=== PATIENT | female | born 1945 | race Caucasian/White ===

== ENCOUNTER 2017-08-30 18:09 | Observation (INO) | payer OTHER ==
[~2017-08-30] VITALS: Ht 167.6 cm; Wt 96.2 kg
[~2017-08-30 18:09] MED LIST: ALBU1.25; ALBU18HF; ALLO100T66; AMLO10TA4; CARB100T3; CLOT21CR6; DILT180C2; GLYB5TAB3; LANS30TA6; METF500T; MINO100C42; PRAV80TA; SERT50TA; VALS1TAB22
[2017-08-30] MEDS ORDERED: IV DEXTROSE 5% - 0.9 % NACL 500 ML IV ONE (18:15)
[2017-08-30] MEDS ORDERED: IV DEXTROSE 5% - 0.9 % NACL 1,000 ML IV ONE (18:15)
[2017-08-30 18:38] LABS: BASO % 0 % (0-3); EOS # 0.1 x10^3/uL (0.0-0.7); EOS % 1 % (0-3); HEMATOCRIT 37.8 % (36.0-47.0); HEMOGLOBIN 12.9 g/dL (12.0-15.5); LYMPH # 2.3 x10^3/uL (1.0-4.8); LYMPH % 26 % (24-48); MEAN CORPUSCULAR HEMOGLOBIN 29 pg (25-35); MEAN CORPUSCULAR HGB CONC 34 g/dL (31-37); MEAN CORPUSCULAR VOLUME 84 fL (79-100); MONO # 0.4 x10^3/uL (0.0-1.1); MONO % 5 % (0-9); NEUT # 6.2 x10^3uL (1.8-7.7); NEUT % 69 % (31-73); PLATELET COUNT 219 x10^3/uL (140-400); RED BLOOD COUNT 4.51 x10^6/uL (3.50-5.40); RED CELL DISTRIBUTION WIDTH 13.5 % (11.5-14.5)
[2017-08-30 18:51] LABS: ALBUMIN 3.7 g/dL (3.4-5.0); ALBUMIN/GLOBULIN RATIO 1.1 (1.0-1.7); CALCIUM 10.1 mg/dL (8.5-10.1); CREATININE 0.8 mg/dL (0.6-1.0); GFR 70.7; POTASSIUM 4.2 mmol/L (3.5-5.1); TOTAL BILIRUBIN 0.3 mg/dL (0.2-1.0); TOTAL PROTEIN 7.2 g/dL (6.4-8.2)
--- NOTE | 2017-08-30 19:08 | PHYS DOC ---
Past History Past Medical History: Asthma, Diabetes, Heart Disease, Hypertension, Seizure Past Surgical History: Hysterectomy, Tonsillectomy, Tubal ligation Smoking: Quit Greater Than 1 Year Alcohol Use: None Drug Use: None Adult General Chief Complaint Chief Complaint: DIZZY/LIGHT HEADED HPI HPI 72-year-old female with a history of asthma and COPD, hypertension, type 2 diabetes on Glucophage and metformin, gastritis and high cholesterol. Patient now presents to the emergency department complaining of feeling lightheaded today. Patient states her glucose was low multiple times. Patient stated her glucose was in the 50s earlier today. She called EMS and when they arrived it was in the 70s. Patient refused transport at that time. This afternoon patient felt lightheaded again and called EMS. Her glucose was again in the 70s upon their arrival. She was given supplemental glucose and it went up to over 200 on arrival in the emergency department it's back down to 70. Patient states she's been compliant with her glyburide under metformin and has not taken any extra doses. The doses of these medications has not been changed recently. Chest pain or shortness of breath. No vertiginous symptoms. No nausea vomiting diarrhea. Patient states her by mouth intake has been baseline for her. No fevers chills sweats or shaking chills. Patient is very clear that she feels lightheaded with these episodes not as if the room was spinning. Review of Systems Review of Systems Constitutional: Denies fever or chills [] Eyes: Denies change in visual acuity, redness, or eye pain [] HENT: Denies nasal congestion or sore throat [] Respiratory: Denies cough or shortness of breath [] Cardiovascular: No additional information not addressed in HPI [] GI: Denies abdominal pain, nausea, vomiting, bloody stools or diarrhea [] : Denies dysuria or hematuria [] Musculoskeletal: Denies back pain or joint pain [] Integument: Denies rash or skin lesions [] Neurologic: Denies headache, focal weakness or sensory changes [] Endocrine: Denies polyuria or polydipsia [] All other systems were reviewed and found to be within normal limits, except as documented in this note. Current Medications Current Medications Current Medications Medications (Trade) Dose Ordered Sig/Kelly Start Time Stop Time Status Last Admin Dose Admin Dextrose/Sodium Chloride 1,000 ml @ 125 mls/hr 1X ONCE 08/30/17 18:15 08/31/17 02:14 Allergies Allergies Allergies Coded Allergies Type Severity Reaction Last Updated Verified Penicillins Allergy Unknown 08/19/13 Yes codeine Allergy Unknown 08/19/13 Yes ether Allergy Unknown 08/19/13 Yes Physical Exam Physical Exam Constitutional: Well developed, well nourished, no acute distress, non-toxic appearance. [] HENT: Normocephalic, atraumatic, bilateral external ears normal, oropharynx moist, no oral exudates, nose normal. [] Eyes: PERRLA, patient with baseline right exotropia, conjunctiva normal, no discharge. [] Neck: Normal range of motion, no tenderness, supple, no stridor. [] Cardiovascular:Heart rate regular rhythm, no murmur [] Lungs & Thorax: Bilateral breath sounds clear to auscultation [] Abdomen: Bowel sounds normal, soft, no tenderness, no masses, no pulsatile masses. [] Skin: Warm, dry, no erythema, no rash. [] Back: No tenderness, no CVA tenderness. [] Extremities: No tenderness, no cyanosis, no clubbing, ROM intact, no edema. [] Neurologic: Alert and oriented X 3, normal motor function, normal sensory function, no focal deficits noted. [] Psychologic: Affect normal, judgement normal, mood normal. [] Current Patient Data Vital Signs Vital Signs Date Time Temp Pulse Resp B/P (MAP) Pulse Ox O2 Delivery O2 Flow Rate FiO2 08/30/17 18:25 97.9 104 16 98 Room Air Lab Results Laboratory Tests Test 08/30/17 18:12 08/30/17 18:20 Glucose (Fingerstick) 77 mg/dL (70-99) White Blood Count 9.0 x10^3/uL (4.0-11.0) Red Blood Count 4.51 x10^6/uL (3.50-5.40) Hemoglobin 12.9 g/dL (12.0-15.5) Hematocrit 37.8 % (36.0-47.0) Mean Corpuscular Volume 84 fL (79-100) Mean Corpuscular Hemoglobin 29 pg (25-35) Mean Corpuscular Hemoglobin Concent 34 g/dL (31-37) Red Cell Distribution Width 13.5 % (11.5-14.5) Platelet Count 219 x10^3/uL (140-400) Neutrophils (%) (Auto) 69 % (31-73) Lymphocytes (%) (Auto) 26 % (24-48) Monocytes (%) (Auto) 5 % (0-9) Eosinophils (%) (Auto) 1 % (0-3) Basophils (%) (Auto) 0 % (0-3) Neutrophils # (Auto) 6.2 x10^3uL (1.8-7.7) Lymphocytes # (Auto) 2.3 x10^3/uL (1.0-4.8) Monocytes # (Auto) 0.4 x10^3/uL (0.0-1.1) Eosinophils # (Auto) 0.1 x10^3/uL (0.0-0.7) Basophils # (Auto) 0.0 x10^3/uL (0.0-0.2) Sodium Level 125 mmol/L (136-145) L Potassium Level 4.2 mmol/L (3.5-5.1) Chloride Level 86 mmol/L (98-107) L Carbon Dioxide Level 29 mmol/L (21-32) Anion Gap 10 (6-14) Blood Urea Nitrogen 18 mg/dL (7-20) Creatinine 0.8 mg/dL (0.6-1.0) Estimated GFR (Cockcroft-Gault) 70.7 BUN/Creatinine Ratio 23 (6-20) H Glucose Level 116 mg/dL (70-99) H Calcium Level 10.1 mg/dL (8.5-10.1) Total Bilirubin 0.3 mg/dL (0.2-1.0) Aspartate Amino Transferase (AST) 78 U/L (15-37) H Alanine Aminotransferase (ALT) 76 U/L (14-59) H Alkaline Phosphatase 241 U/L (46-116) H Total Protein 7.2 g/dL (6.4-8.2) Albumin 3.7 g/dL (3.4-5.0) Albumin/Globulin Ratio 1.1 (1.0-1.7) EKG EKG EKG with normal sinus rhythm at [address] and T-wave findings no STEMI interpreted by me[] Radiology/Procedures Radiology/Procedures Chest x-ray portable one view no acute disease chronic changes mild cardiomegaly , otherwise unremarkable study interpreted by me[] Course & Med Decision Making Course & Med Decision Making Pertinent Labs and Imaging studies reviewed. (See chart for details) Signs and symptoms consistent with recurrent hypoglycemia in a patient on multiple oral hypoglycemics. Despite by mouth intake, hypoglycemia continues to recur multiple times today. Full workup pending to rule out etiology contributory to patient's glycemic instability. Dr. Jc the patient's primary care physician regarding inpatient admission to supplement glucose, follow-up for stability, and adjust oral hypoglycemic therapy as needed. Case discussed with Dr. Howard, he is aware of hyponatremia and recurrent hypoglycemia agrees with current therapy excess patient for inpatient admission to a med telemetry bed to his service Dragon Disclaimer Dragon Disclaimer This electronic medical record was generated, in whole or in part, using a voice recognition dictation system. Departure Departure: Impression: Primary Impression: Hypoglycemia Additional Impressions: Near syncope Hyponatremia Disposition: ADMITTED INPATIENT Admitting Physician: Dave Howard Condition: GOOD Referrals: DAVE HOWARD MD (PCP) Problem Qualifiers ROSEANNE COPE MD Aug 30, 2017 19:08
[2017-08-30 19:09] LABS: BACTERIA,URINE 0 /HPF (0-FEW); BILIRUBIN,URINE NEG (NEG); CLARITY,URINE CLEAR; COLOR,URINE STRAW; GLUCOSE,URINE NEG (NEG); NITRITE,URINE NEG (NEG); RBC,URINE RARE /HPF (0-2); SQUAMOUS EPITHELIAL CELL,UR OCC /LPF; UROBILINOGEN,URINE 0.2 mg/dL (0.2 mg/dL)
[2017-08-30] MEDS ORDERED: ONDANSETRON PF 4 MG/2 ML VIAL. IV PRN (19:30)
[2017-08-30 20:15] VITALS: BP 154/65
[2017-08-30] MEDS ORDERED: ALBUTEROL SULFATE 2.5 MG/3 ML NEBU. NEB PRN (22:00)
[2017-08-30] MEDS ORDERED: ACETAMINOPHEN 500 MG TABLET PO PRN (22:30)
[2017-08-31 00:42] VITALS: BP 166/74
--- NOTE | 2017-08-31 05:00 | EKG ---
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
[2017-08-31 05:16] VITALS: BP 146/60
[2017-08-31 06:40] LABS: BASO % 0 % (0-3); EOS # 0.2 x10^3/uL (0.0-0.7); EOS % 2 % (0-3); HEMATOCRIT 37.6 % (36.0-47.0); HEMOGLOBIN 12.9 g/dL (12.0-15.5); LYMPH # 2.9 x10^3/uL (1.0-4.8); LYMPH % 27 % (24-48); MEAN CORPUSCULAR HEMOGLOBIN 29 pg (25-35); MEAN CORPUSCULAR HGB CONC 34 g/dL (31-37); MEAN CORPUSCULAR VOLUME 83 fL (79-100); MONO # 0.5 x10^3/uL (0.0-1.1); MONO % 5 % (0-9); NEUT # 7.1 x10^3uL (1.8-7.7); NEUT % 66 % (31-73); PLATELET COUNT 223 x10^3/uL (140-400); RED BLOOD COUNT 4.51 x10^6/uL (3.50-5.40); RED CELL DISTRIBUTION WIDTH 13.1 % (11.5-14.5); WHITE BLOOD COUNT 10.7 x10^3/uL (4.0-11.0)
[2017-08-31 06:47] LABS: CALCIUM 9.5 mg/dL (8.5-10.1); CREATININE 0.7 mg/dL (0.6-1.0); GFR 82.5; POTASSIUM 3.5 mmol/L (3.5-5.1)
--- NOTE | 2017-08-31 07:41 | RAD ---
Portable chest, 08/30/2017: History: Dizziness, lightheadedness Comparison is made to a study from 01/22/2013. The heart size is normal. There is calcific plaquing of the aorta. The pulmonary vascularity is normal. No pulmonary infiltrates are seen. There is no evidence of pleural fluid. Mild spurring is present in the spine. IMPRESSION: No acute cardiopulmonary abnormality is detected.
[2017-08-31] MEDS: amLODIPine BESYLATE 10 MG TABLET PO SCH (08:30)
[2017-08-31] MEDS: ALLOPURINOL 100 MG TABLET. PO SCH (08:30)
[2017-08-31] MEDS: LANSOPRAZOLE 30 MG TAB.RAP.DR PO SCH (08:33)
[2017-08-31] MEDS ORDERED: SERTRALINE 50 MG TABLET. PO SCH (09:00)
[2017-08-31] MEDS ORDERED: ALBUTEROL SULFATE 8GM INHALER. INH SCH (09:00)
[2017-08-31 10:18] VITALS: BP 186/61
[2017-08-31] MEDS ORDERED: traMADol 50 MG TABLET PO PRN (13:30)
[2017-08-31 15:28] VITALS: BP 135/62
--- NOTE | 2017-08-31 15:38 | HP ---
ADMIT DATE: 08/30/2017 HISTORY OF PRESENT ILLNESS: A 72-year-old female with history of asthma, COPD, has been having problems with her blood sugars, going high, going low, actually sometimes in the 50s and then back up into the 200s. The patient more importantly also had a problem with hyponatremia with a sodium of 124. As a result of all these fluctuations in her blood sugar, adjustment of her medications as well as getting her sodium back into range, the patient was admitted to the hospital. She was feeling lightheaded and not able to walk very steadily. She denied any dizziness per se. She denied chest pain or shortness of breath. PAST MEDICAL HISTORY: Asthma, diabetes, morbid obesity, hypertension, history of seizures, sleep apnea with CPAP, colonic polyps, back pain, diabetes, ____, psychiatric problems, anxiety, smoking. Tetanus diphtheria vaccination and tetanus toxoid vaccination unknown, but influenza pneumococcal up-to-date. ALLERGIES: PENICILLIN, CODEINE, ETHER, MILK, AND PEANUT OIL. HOME MEDICATIONS: Also revealed Zoloft 50 mg a day, Prevacid 30 mg, metformin 500 b.i.d., glyburide 5 mg daily, Tegretol-XR 100 mg daily, Norvasc 10, allopurinol 100, Tylenol, Ventolin 2.5, Zofran 4. REVIEW OF SYSTEMS: The patient denies any headaches, visual change, blurred vision, double vision. Does have lightheadedness. The patient otherwise denies abdominal pain. Denies any melena, hematochezia, hematemesis, and neurologically baseline for her. PHYSICAL EXAMINATION: GENERAL: Pleasant white female, morbidly obese. VITAL SIGNS: Blood pressure 175/60, respiratory rate 20, pulse 72, afebrile. HEENT: The patient's head was atraumatic, normocephalic. Eyes: PERRLA without jaundice. Mouth and throat were normal. NECK: Supple. No JVD or thyromegaly. LUNGS: Diminished throughout, poor movement of air. CARDIOVASCULAR: Regular sinus rhythm. S1, S2, without murmur, rub, thrill, or extra heart sounds. ABDOMEN: Soft, nontender, no rebound or guarding. Positive bowel sounds, no hepatosplenomegaly noted. EXTREMITIES: No clubbing, cyanosis, or edema. NEUROLOGIC: The patient is alert and oriented x 3. LABORATORY DATA: The patient's CBC normal. However, her sodium was 124, BUN and creatinine were stable at 28 and 7. Blood sugars as noted vacillated anywhere from 70 to 286. Cardiac enzymes negative, proteins normal. 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 PLAN: Continue to monitor the patient, accordingly make further evaluation on her as indicated per those results. CIRO VIDAL MD DR: KHADRA/feroz JOB#: [id number] / [id number]
[2017-08-31 19:34] VITALS: BP 180/95
[2017-08-31 23:12] VITALS: BP 155/81
[2017-09-01 06:04] VITALS: BP 153/62
[2017-09-01 06:33] LABS: CALCIUM 9.7 mg/dL (8.5-10.1); CREATININE 0.8 mg/dL (0.6-1.0); GFR 70.7; POTASSIUM 3.8 mmol/L (3.5-5.1)
[2017-09-01] MEDS: ALLOPURINOL 100 MG TABLET. PO SCH (08:07)
[2017-09-01] MEDS: amLODIPine BESYLATE 10 MG TABLET PO SCH (08:07)
[2017-09-01] MEDS: LANSOPRAZOLE 30 MG TAB.RAP.DR PO SCH (08:08)
[2017-09-01 08:10] VITALS: BP 153/62
[2017-09-01] MEDS ORDERED: [UNRECOGNIZED DRUG - OTHER] PO SCH (09:00)
[2017-09-01] MEDS ORDERED: METAMUCIL PO SCH (09:00)
[2017-09-01] MEDS ORDERED: POLYETHYLENE GLYCOL PO SCH (09:00)
[2017-09-01] MEDS ORDERED: PSYLLIUM SEED PO SCH (09:00)
== END 2017-09-01 10:25 | disposition home or self-care (01) ==
LOC: ER 18:09 → 1 SOUTH 19:30 → INTOOBSV 19:30
PROVIDERS: ADMIT Family Medicine; ATTEND Family Medicine
DX: E87.1 Hypo-osmolality and hyponatremia (principal); E11.9 Type 2 diabetes mellitus without complications; J44.9 Chronic obstructive pulmonary disease, unspecified; G47.30 Sleep apnea, unspecified; I10 Essential (primary) hypertension; E66.01 Morbid (severe) obesity due to excess calories; Z86.010 Personal history of colon polyps
CPT/HCPCS: 36415; 71045; 80048; 80053; 81001; 82947; 84443; 84484; 85025; 93005; 96360; 96361; 97161; 97166; 99285; G0378; J7042; G0379

== ENCOUNTER 2018-01-31 17:34 | Emergency (ER) | payer OTHER ==
[~2018-01-31] VITALS: Ht 167.6 cm; Wt 93.4 kg
--- NOTE | 2018-01-31 17:41 | ED.ADGEN ---
Past History Past Medical History: Asthma, Diabetes, Heart Disease, Hypertension, Seizure Past Surgical History: Hysterectomy, Tonsillectomy, Tubal ligation Smoking: Quit Greater Than 1 Year Alcohol Use: None Drug Use: None Adult General Chief Complaint Chief Complaint ".. I bent over this morning.. and felt something pull in my back.. and chest... here on the Lt..... It still hurts if you push on it... " HPI HPI Patient is a 72 year old female who presents with above hx and complaints Point tenderness on Lt guthrie phenic or flank. Pt. is increased with bending side to side and forward. Patient denies any history of problems with defecation or urination. Pain appears to be localized and very small area 1-2 cm. Pain is reducible on palpation. Patient denies any trauma. Patient denies any travel. Patient denies immunosuppression. Patient follows Dr. Howard. Patient denies any history kidney stones or dysuria. Review of Systems Review of Systems Constitutional: Denies fever or chills [] Eyes: Denies change in visual acuity, redness, or eye pain [] HENT: Denies nasal congestion or sore throat [] Respiratory: Denies cough or shortness of breath [] Cardiovascular: No additional information not addressed in HPI [] GI: Denies abdominal pain, nausea, vomiting, bloody stools or diarrhea [] : Denies dysuria or hematuria [] Musculoskeletal: Complains of back pain Integument: Denies rash or skin lesions [] Neurologic: Denies headache, focal weakness or sensory changes [] Endocrine: Denies polyuria or polydipsia [] All other systems were reviewed and found to be within normal limits, except as documented in this note. Family History Family History Noncontributory Current Medications Current Medications Current Medications Medications (Trade) Dose Ordered Sig/Kelly Start Time Stop Time Status Last Admin Dose Admin Ketorolac Tromethamine (Toradol 30mg Vial) 30 mg 1X ONCE 01/31/18 18:00 01/31/18 18:01 DC 01/31/18 18:35 30 MG Levofloxacin (Levaquin) 500 mg 1X ONCE 01/31/18 18:45 01/31/18 18:47 DC 01/31/18 19:16 500 MG Orphenadrine Citrate (Norflex) 60 mg 1X ONCE 01/31/18 18:00 01/31/18 18:01 DC Allergies Allergies Allergies Coded Allergies Type Severity Reaction Last Updated Verified Penicillins Allergy Intermediate 08/30/17 Yes codeine Allergy Intermediate 08/30/17 Yes ether Allergy Intermediate 08/30/17 Yes milk Allergy Intermediate 08/30/17 Yes peanut oil Allergy Intermediate 08/30/17 Yes Physical Exam Physical Exam Constitutional: Moderately acute distress, non-toxic appearance. [] HENT: Normocephalic, atraumatic, bilateral external ears normal, oropharynx moist, no oral exudates, nose normal. [] Eyes: PERRLA, EOMI, conjunctiva normal, no discharge. [] Neck: Normal range of motion, no tenderness, supple, no stridor. [] Cardiovascular:Heart rate regular rhythm, no murmur [] Lungs & Thorax: Bilateral breath sounds clear to auscultation [] Abdomen: Bowel sounds normal, soft, no tenderness, no masses, no pulsatile masses. [] Obese. Multiple surgery scars. Skin: Warm, dry, no erythema, no rash. [] Back: Left point tenderness, left CVA tenderness. [] Extremities: No tenderness, no cyanosis, no clubbing, ROM intact, no edema. [ Neurologic: Alert and oriented X 3, normal motor function, normal sensory function, no focal deficits noted. []DTRs +2 patella and brachial. Patient ambulatory without problems. Psychologic: Affect normal, judgement normal, mood normal. [] Current Patient Data Vital Signs Vital Signs Date Time Temp Pulse Resp B/P (MAP) Pulse Ox O2 Delivery O2 Flow Rate FiO2 01/31/18 19:20 78 16 156/84 (108) 98 Room Air 01/31/18 17:45 97.5 Lab Results Laboratory Tests Test 01/31/18 18:03 Urine Collection Type Unknown Urine Color Straw Urine Clarity Hazy Urine pH 6.5 Urine Specific [place] 1.015 Urine Protein Neg (NEG-TRACE) Urine Glucose (UA) Neg mg/dL (NEG) Urine Ketones (Stick) Neg mg/dL (NEG) Urine Blood Trace (NEG) Urine Nitrite Neg (NEG) Urine Bilirubin Neg (NEG) Urine Urobilinogen Dipstick 0.2 mg/dL (0.2 mg/dL) Urine Leukocyte Esterase Mod (NEG) Urine RBC 3-5 /HPF (0-2) Urine WBC 11-20 /HPF (0-4) Urine Squamous Epithelial Cells Few /LPF Urine Bacteria Few /HPF (0-FEW) EKG EKG [] Radiology/Procedures Radiology/Procedures [] Course & Med Decision Making Course & Med Decision Making Pertinent Labs and Imaging studies reviewed. (See chart for details).. She push fluids. Patient to take Levaquin daily for 5 days. Patient follow up urine cultures. Patient take Tylenol and ibuprofen for pain. Patient consider taking Flexeril however reports a previous allergy muscle relaxants. Patient use ice packs. Patient to push vitamin C drinks. Patient return if any concerns. [] Final Impression Final Impression 1. Muscle Strain[] 2. Urinary tract infection Dragon Disclaimer Dragon Disclaimer This electronic medical record was generated, in whole or in part, using a voice recognition dictation system. LILIAN CHANEY MD Jan 31, 2018 17:41
[2018-01-31] MEDS ORDERED: KETOROLAC 30 MG/ML VIAL. IM ONE (18:00)
[2018-01-31] MEDS ORDERED: CYCL-331 PO (18:00)
[2018-01-31] MEDS ORDERED: HYDR-79 PO (18:00)
[2018-01-31] MEDS ORDERED: ORPHENADRINE CITRATE 60 MG/2 ML VIAL. IM ONE (18:00)
[2018-01-31 18:30] LABS: BILIRUBIN,URINE NEG (NEG); CLARITY,URINE HAZY; COLOR,URINE STRAW; GLUCOSE,URINE NEG (NEG); NITRITE,URINE NEG (NEG); UROBILINOGEN,URINE 0.2 mg/dL (0.2 mg/dL)
[2018-01-31 18:31] LABS: BACTERIA,URINE FEW /HPF (0-FEW); SQUAMOUS EPITHELIAL CELL,UR FEW /LPF
[2018-01-31] MEDS ORDERED: LEVO500T59 PO (18:45)
[2018-01-31] MEDS ORDERED: levoFLOXacin 500 MG TABLET PO ONE (18:45)
[2018-01-31 19:20] VITALS: BP 156/84
--- NOTE | 2018-02-01 02:34 | RAD ---
Chest, PA and Lateral: Technique: PA and lateral views of the chest were obtained. History: Chest pain. Comparison: None. Findings: The heart and pulmonary vasculature appear within normal limits. The lungs are clear. The pleural margins are clear. Moderate degenerative changes thoracic spine. Impression: No acute chest process is seen. Electronically signed by: Angel Jones MD (02/01/2018 2:31 AM) [id number]
== END 2018-01-31 19:20 | disposition home or self-care (01) ==
LOC: ER 17:34
DX: S29.012A Strain of muscle and tendon of back wall of thorax, initial encounter (principal); N39.0 Urinary tract infection, site not specified; J45.909 Unspecified asthma, uncomplicated; E11.9 Type 2 diabetes mellitus without complications; I11.9 Hypertensive heart disease without heart failure; Z87.891 Personal history of nicotine dependence; Z88.0 Allergy status to penicillin; Z88.5 Allergy status to narcotic agent; Z91.011 Allergy to milk products; Z88.8 Allergy status to other drugs, medicaments and biological substances; Z91.018 Allergy to other foods; X50.0XXA Overexertion from strenuous movement or load, initial encounter; Y93.89 Activity, other specified; Y92.89 Other specified places as the place of occurrence of the external cause; Y99.8 Other external cause status
CPT/HCPCS: 71046; 81001; 87086; 96372; 99285; J1885

== ENCOUNTER → 2018-12-21 | Outpatient (CLI) | payer OTHER ==
[~2018-12-21] MED LIST changes: -ALBU18HF; +ALBU2.5V8; +CYCL-331 PO; +HYDR-1179 PO; +LEVO500T59 PO
--- NOTE | 2018-12-21 12:49 | RAD ---
EXAM: Head CT without contrast. HISTORY: Suspected foreign body. TECHNIQUE: Computed tomographic images of the head were obtained without contrast. *One or more of the following individualized dose reduction techniques were utilized for this examination: 1. Automated exposure control. 2. Adjustment of the mA and/or kV according to patient size. 3. Use of iterative reconstruction technique. COMPARISON: None. FINDINGS: There is no acute or subacute extra-axial or intraparenchymal hemorrhage. There is no mass effect or midline shift. There is no hydrocephalus. The [id number] matter differentiation pattern is intact. The orbits, paranasal sinuses mastoid air cells are unremarkable. There are few tiny calcifications within the soft tissues along the inferior scalp and nasal bridge. There is also a suspected tiny calcification within the right frontal scalp near the vertex. No suspicious retained foreign body is seen. IMPRESSION: No acute intracranial findings. Electronically signed by: Kiara Salazar MD (12/21/2018 12:46 PM) [id number]
== END | disposition home or self-care (01) ==
LOC: CT 10:26
PROVIDERS: ATTEND Family Medicine
DX: J34.89 Other specified disorders of nose and nasal sinuses (principal)
CPT/HCPCS: 70450

== ENCOUNTER → 2019-09-27 | Outpatient (CLI) | payer MEDICARE ==
[2019-09-27 11:34] LABS: ALBUMIN 3.6 g/dL (3.4-5.0); ALBUMIN/GLOBULIN RATIO 0.9 (1.0-1.7); CALCIUM 9.7 mg/dL (8.5-10.1); CREATININE 1.7 mg/dL (0.6-1.0); GFR 29.5; POTASSIUM 4.3 mmol/L (3.5-5.1); TOTAL BILIRUBIN 0.2 mg/dL (0.2-1.0); TOTAL PROTEIN 7.5 g/dL (6.4-8.2)
== END | disposition home or self-care (01) ==
LOC: LAB 09:40
PROVIDERS: ATTEND Nurse Practitioner
DX: E78.5 Hyperlipidemia, unspecified (principal)
CPT/HCPCS: 36415; 80053; 80061

== ENCOUNTER 2020-09-07 16:17 | Inpatient (IN) | payer MEDICARE ==
[~2020-09-07] VITALS: Ht 167.6 cm; Wt 106.0 kg
[~2020-09-07 16:17] MED LIST changes: -VALS1TAB22; +VALS1TAB23
--- NOTE | 2020-09-07 19:13 | RAD ---
AP chest. HISTORY: Short of breath AP view was taken of the chest. Lungs are clear. Heart is normal in size. There is no pleural effusio n. IMPRESSION: 1. No acute chest disease. Electronically signed by: Jeffery Graham MD (09/07/2020 7:11 PM) [facility]
[2020-09-07 19:27] LABS: BASO % 1 % (0-3); EOS % 0 % (0-3); HEMATOCRIT 34.8 % (36.0-47.0); HEMOGLOBIN 11.8 g/dL (12.0-15.5); LYMPH # 1.5 x10^3/uL (1.0-4.8); LYMPH % 23 % (24-48); MEAN CORPUSCULAR HEMOGLOBIN 30 pg (25-35); MEAN CORPUSCULAR HGB CONC 34 g/dL (31-37); MEAN CORPUSCULAR VOLUME 88 fL (79-100); MONO # 0.4 x10^3/uL (0.0-1.1); MONO % 6 % (0-9); NEUT # 4.5 x10^3uL (1.8-7.7); NEUT % 70 % (31-73); PLATELET COUNT 219 x10^3/uL (140-400); RED BLOOD COUNT 3.97 x10^6/uL (3.50-5.40); WHITE BLOOD COUNT 6.4 x10^3/uL (4.0-11.0)
[2020-09-07 19:32] LABS: CALCIUM 10.1 mg/dL (8.5-10.1); CREATININE 1.1 mg/dL (0.6-1.0); GFR 48.6; POTASSIUM 4.4 mmol/L (3.5-5.1)
--- NOTE | 2020-09-07 19:38 | PHYS DOC ---
Past History Past Medical History: Asthma, Diabetes, High Cholesterol, Heart Disease, Hypertension, Seizure, Other Past Surgical History: Hysterectomy, Tonsillectomy, Tubal ligation, Other Smoking: Quit Greater Than 1 Year Alcohol Use: None Drug Use: None Adult General Chief Complaint Chief Complaint: SHORTNESS OF BREATH HPI HPI Patient is a 75-year-old female who presents emergency department with a chief complaint of lightheadedness and urinary tract infection. States that about a week ago she saw her primary care physician and was diagnosed with a urinary t ract infection and started on Bactrim. States that soon as she started taking the Bactrim it made her feel funny, and lightheaded at times. States that currently she is not lightheaded but thinks the medication is having adverse effects. States she is taken approximately 6 days worth, and did take it this morning. States that about 30 minutes after taking it she felt lightheaded. Denies headache, changes in vision, chest pain, shortness of breath, abdominal pain, nausea, vomiting, diarrhea. States that she did have some dysuria and urine odor when she started the Bactrim but that has resolved. Denies any recent travel, illnesses, fevers or known ill contacts. States she is otherwise eating and drinking normally. States he is making urine and stool normally. Denies any trouble ambulating. Denies any numbness/weakness/tingling. Denies any slurred speech, facial droop or confusion. Review of Systems Review of Systems Review of systems otherwise unremarkable except noted in HPI Allergies Allergies Allergies Coded Allergies Type Severity Reaction Last Updated Verified Penicillins Allergy Intermediate 08/30/17 Yes codeine Allergy Intermediate 08/30/17 Yes ether Allergy Intermediate 08/30/17 Yes milk Allergy Intermediate 08/30/17 Yes peanut oil Allergy Intermediate 08/30/17 Yes Physical Exam Physical Exam Constitutional: Well developed, well nourished, no acute distress, non-toxic appearance. [] HENT: Normocephalic, atraumatic, bilateral external ears normal, oropharynx moist, no oral exudates, nose normal. [] Eyes: PERRLA, EOMI, conjunctiva normal, no discharge. Patient has a right-sided lazy eye at baseline. [] Neck: Normal range of motion, no tenderness, supple, no stridor. [] Cardiovascular:Heart rate regular rhythm, no murmur [] Lungs & Thorax: Bilateral breath sounds clear to auscultation [] Abdomen: soft, no tenderness, no masses, no pulsatile masses. [] Skin: Warm, dry, no erythema, no rash. [] Back: no CVA tenderness. [] Extremities: No tenderness, no cyanosis, no clubbing, ROM intact, no edema. [] Neurologic: Alert and oriented X 3, normal motor function, normal sensory function, no focal deficits noted. [] Psychologic: Affect normal, judgement normal, mood normal. [] Current Patient Data Lab Results Laboratory Tests Test 09/07/20 16:39 09/07/20 18:56 Glucose (Fingerstick) 153 mg/dL (70-99) H White Blood Count 6.4 x10^3/uL (4.0-11.0) Red Blood Count 3.97 x10^6/uL (3.50-5.40) Hemoglobin 11.8 g/dL (12.0-15.5) L Hematocrit 34.8 % (36.0-47.0) L Mean Corpuscular Volume 88 fL (79-100) Mean Corpuscular Hemoglobin 30 pg (25-35) Mean Corpuscular Hemoglobin Concent 34 g/dL (31-37) Red Cell Distribution Width 14.0 % (11.5-14.5) Platelet Count 219 x10^3/uL (140-400) Neutrophils (%) (Auto) 70 % (31-73) Lymphocytes (%) (Auto) 23 % (24-48) L Monocytes (%) (Auto) 6 % (0-9) Eosinophils (%) (Auto) 0 % (0-3) Basophils (%) (Auto) 1 % (0-3) Neutrophils # (Auto) 4.5 x10^3uL (1.8-7.7) Lymphocytes # (Auto) 1.5 x10^3/uL (1.0-4.8) Monocytes # (Auto) 0.4 x10^3/uL (0.0-1.1) Eosinophils # (Auto) 0.0 x10^3/uL (0.0-0.7) Basophils # (Auto) 0.0 x10^3/uL (0.0-0.2) EKG EKG [] Radiology/Procedures Radiology/Procedures [] Heart Score C/O Chest Pain: No Risk Factors: Risk Factors: DM, Current or recent (<one month) smoker, HTN, HLP, family history of CAD, obesity. Risk Scores: Risk Factors: DM, Current or recent (<one month) smoker, HTN, HLP, family history of CAD, obesity. Course & Med Decision Making Course & Med Decision Making Patient is a 75-year-old female who presents with a chief complaint of concern for adverse medication reaction and lightheadedness Vital signs not concerning. Physical exam noted above. EKG noted above and no concern for STEMI. Does appear to have a first-degree block. Laboratory analysis notable for hyponatremia to one twenty-two. Patient appears to have an approximately 700 mEq sodium deficit. Started on one hundred mils an hour normal saline. Discussed all findings with patient and recommended admission to the hospital for continued evaluation and treatment of her hyponatremia. Patient grateful, verbalized understanding and agreed with plan of admission [] Dragon Disclaimer Dragon Disclaimer This electronic medical record was generated, in whole or in part, using a voice recognition dictation system. Departure Departure: Impression: Primary Impression: Hyponatremia Additional Impression: Lightheaded Disposition: ADMITTED INPATIENT Admitting Physician: Rajni Hansen Condition: IMPROVED Referrals: CIRO VIDAL MD (PCP) Problem Qualifiers CLARK RAMIRES MD Sep 07, 2020 19:37
[2020-09-07 19:40] LABS: ALBUMIN 3.9 g/dL (3.4-5.0); ALBUMIN/GLOBULIN RATIO 1.3 (1.0-1.7); MAGNESIUM 1.9 mg/dL (1.8-2.4); TOTAL BILIRUBIN 0.3 mg/dL (0.2-1.0)
--- NOTE | 2020-09-07 19:57 | EKG ---
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
[2020-09-07 20:04] LABS: BILIRUBIN,URINE NEG (NEG); CLARITY,URINE CLEAR; COLOR,URINE YELLOW; GLUCOSE,URINE NEG (NEG); NITRITE,URINE NEG (NEG); UROBILINOGEN,URINE 0.2 mg/dL (0.2 mg/dL)
[2020-09-07 20:05] LABS: BACTERIA,URINE 0 /HPF (0-FEW); SQUAMOUS EPITHELIAL CELL,UR MOD /LPF
[2020-09-07] MEDS ORDERED: IV NORMAL SALINE 1,000ML 1,000 ML IV ONE (21:00)
[2020-09-07] MEDS ORDERED: ACETAMINOPHEN 500 MG TABLET PO ONE (21:15)
[2020-09-07 22:05] VITALS: BP 191/69
[2020-09-07 23:26] VITALS: BP 197/65
--- NOTE | 2020-09-08 | NUR ---
The patient, JUAN ALFARO, 75 y/o, F admitted by CIRO VIDAL MD, to room 124, was given written information regarding hospital policies, unit procedures and contact persons. Valuables were checked and left with the patient. Prescriptions were recorded and sent to the pharmacy. Pt made comfortable in bed, oriented to room and procedures. Will continue to monitor.
[2020-09-08] MEDS: traMADol 50 MG TABLET PO PRN ×3 (00:09→08:53)
[2020-09-08] MEDS ORDERED: CARB200C7 PO (04:35)
[2020-09-08] MEDS ORDERED: GLYB2.5T2 PO (04:35)
[2020-09-08] MEDS ORDERED: CHLO25TA9 PO (04:35)
[2020-09-08] MEDS ORDERED: DILT360T7 PO (04:35)
[2020-09-08] MEDS ORDERED: CRESTOR40 MG PO (04:35)
[2020-09-08] MEDS ORDERED: ALLO100T PO (04:35)
[2020-09-08] MEDS ORDERED: OLME40TA12 PO (04:35)
[2020-09-08] MEDS ORDERED: ASPI-889 PO (04:35)
[2020-09-08 06:26] VITALS: BP 152/41
[2020-09-08 07:59] LABS: CALCIUM 9.3 mg/dL (8.5-10.1); GFR 54.2; POTASSIUM 4.4 mmol/L (3.5-5.1)
[2020-09-08] MEDS: CHLORTHALIDONE 25 MG TABLET PO SCH (09:00)
[2020-09-08] MEDS: ASPIRIN ENTERIC COATED 81 MG TABLET.DR. PO SCH ×2 (09:00→09:30)
[2020-09-08] MEDS ORDERED: levoFLOXacin 500 MG TABLET PO SCH (09:00)
[2020-09-08] MEDS: carBAMazepine 200 MG TABLET PO SCH ×5 (09:15→20:48)
[2020-09-08] MEDS: ATORVASTATIN CALCIUM 20 MG TABLET PO SCH (09:30)
[2020-09-08] MEDS: HYDROcodon/IBUPROFEN 7.5/200MG 1 TAB TABLET PO PRN ×2 (09:30→20:49)
[2020-09-08] MEDS: ALLOPURINOL 100 MG TABLET. PO SCH ×2 (09:31→20:48)
[2020-09-08] MEDS: LOSARTAN 50 MG TABLET. PO SCH (09:31)
[2020-09-08] MEDS: glyBURIDE 5 MG TABLET PO SCH ×2 (09:31→17:00)
[2020-09-08 10:24] VITALS: BP 145/65
[2020-09-08] MEDS: IV NORMAL SALINE 1,000ML 500 ML IV SCH (11:30)
[2020-09-08 15:48] VITALS: BP 144/51
[2020-09-08 19:02] VITALS: BP 147/73
[2020-09-08] MEDS: POLYETHYLENE GLYCOL 3350 17 GM PACKET. PO SCH (20:48)
[2020-09-08 23:00] VITALS: BP_SYST 102; BP_SYST 162; BP_DIAS 70; BP_DIAS 84
[2020-09-09] MEDS: IV NORMAL SALINE 1,000ML 500 ML IV SCH ×5 (00:50→19:40)
[2020-09-09] MEDS: traMADol 50 MG TABLET PO PRN (03:30)
[2020-09-09 05:48] LABS: BACTERIA,URINE FEW /HPF (0-FEW); BILIRUBIN,URINE NEG (NEG); CLARITY,URINE HAZY; COLOR,URINE YELLOW; GLUCOSE,URINE NEG (NEG); NITRITE,URINE NEG (NEG); RBC,URINE 0 /HPF (0-2); SQUAMOUS EPITHELIAL CELL,UR FEW /LPF; UROBILINOGEN,URINE 0.2 mg/dL (0.2 mg/dL)
[2020-09-09 06:22] VITALS: BP 155/54
[2020-09-09] MEDS: ATORVASTATIN CALCIUM 20 MG TABLET PO SCH (07:19)
[2020-09-09] MEDS: CHLORTHALIDONE 25 MG TABLET PO SCH (07:19)
[2020-09-09] MEDS: LOSARTAN 50 MG TABLET. PO SCH (07:19)
[2020-09-09] MEDS: LORazepam 1 MG TABLET PO PRN ×2 (07:19→20:16)
[2020-09-09] MEDS: ASPIRIN ENTERIC COATED 81 MG TABLET.DR. PO SCH (07:20)
[2020-09-09] MEDS: HYDROcodon/IBUPROFEN 7.5/200MG 1 TAB TABLET PO PRN ×2 (07:20→20:16)
[2020-09-09] MEDS: carBAMazepine 200 MG TABLET PO SCH ×4 (07:20→20:16)
[2020-09-09] MEDS: glyBURIDE 5 MG TABLET PO SCH ×2 (07:20→17:56)
[2020-09-09] MEDS: POLYETHYLENE GLYCOL 3350 17 GM PACKET. PO SCH ×2 (07:20→20:16)
[2020-09-09] MEDS: ALLOPURINOL 100 MG TABLET. PO SCH ×2 (07:20→20:16)
[2020-09-09 10:09] LABS: BASO % 1 % (0-3); EOS % 1 % (0-3); HEMATOCRIT 33.5 % (36.0-47.0); HEMOGLOBIN 11.2 g/dL (12.0-15.5); LYMPH # 1.4 x10^3/uL (1.0-4.8); LYMPH % 26 % (24-48); MEAN CORPUSCULAR HEMOGLOBIN 30 pg (25-35); MEAN CORPUSCULAR HGB CONC 34 g/dL (31-37); MEAN CORPUSCULAR VOLUME 89 fL (79-100); MONO # 0.4 x10^3/uL (0.0-1.1); MONO % 8 % (0-9); NEUT # 3.4 x10^3uL (1.8-7.7); NEUT % 65 % (31-73); PLATELET COUNT 213 x10^3/uL (140-400); RED BLOOD COUNT 3.78 x10^6/uL (3.50-5.40); RED CELL DISTRIBUTION WIDTH 14.1 % (11.5-14.5); WHITE BLOOD COUNT 5.3 x10^3/uL (4.0-11.0)
[2020-09-09 10:11] LABS: CALCIUM 9.3 mg/dL (8.5-10.1); CREATININE 0.8 mg/dL (0.6-1.0); GFR 70.1; POTASSIUM 4.4 mmol/L (3.5-5.1)
[2020-09-09 11:29] VITALS: BP 152/82
[2020-09-09 16:04] VITALS: BP 156/69
[2020-09-09 19:22] VITALS: BP 141/71
[2020-09-09 23:12] VITALS: BP 119/67
--- NOTE | 2020-09-10 01:17 | PN ---
DATE: 09/08/2020 SUBJECTIVE: A 75-year-old female in with hyponatremia. She is doing fairly well except for sodium was dropped down to 123. Feels very weak, anxious and not feeling very well. In any case, the patient will be given a bag of normal saline and see if that will bring up her sodium. OBJECTIVE: VITAL SIGNS: Blood pressure 120/70, respiratory rate 18, pulse 70, afebrile. LUNGS: Clear. CARDIOVASCULAR: Stable. ABDOMEN: Soft. LABORATORY DATA: The patient's sodium is noted down to 123. IMPRESSION: Hyponatremia. PLAN: Continue to monitor her accordingly and make further evaluation on her as indicated. CIRO VIDAL MD DR: KHADRA/feroz JOB#: [id number] / [id number]
[2020-09-10] MEDS: IV NORMAL SALINE 1,000ML 500 ML IV SCH ×2 (02:20→09:00)
[2020-09-10 05:29] VITALS: BP 148/75
[2020-09-10 06:52] LABS: CALCIUM 9.3 mg/dL (8.5-10.1); CREATININE 0.9 mg/dL (0.6-1.0); GFR 61.2; POTASSIUM 4.6 mmol/L (3.5-5.1)
[2020-09-10] MEDS: CHLORTHALIDONE 25 MG TABLET PO SCH (09:00)
[2020-09-10] MEDS: ASPIRIN ENTERIC COATED 81 MG TABLET.DR. PO SCH (09:35)
[2020-09-10] MEDS: ALLOPURINOL 100 MG TABLET. PO SCH (09:35)
[2020-09-10] MEDS: carBAMazepine 200 MG TABLET PO SCH (09:35)
[2020-09-10] MEDS: ATORVASTATIN CALCIUM 20 MG TABLET PO SCH (09:36)
[2020-09-10] MEDS: glyBURIDE 5 MG TABLET PO SCH (09:36)
[2020-09-10 09:37] VITALS: BP 148/75
[2020-09-10] MEDS: POLYETHYLENE GLYCOL 3350 17 GM PACKET. PO SCH (09:37)
[2020-09-10] MEDS: LOSARTAN 50 MG TABLET. PO SCH (09:37)
--- NOTE | 2020-09-10 11:07 | NUR ---
DISCHARGE NOTE Pt discharged today by Dr. Howard. Pt picked up by daughter. Pt verbalized understanding of discharge instructions and all questions addressed. All belongings given to daughter and medications given back to pt from pharmacy. VSS and GCS 15 upon DC. CC, RN
--- NOTE | 2020-09-10 18:14 | HP ---
ADMIT DATE: 09/07/2020 HISTORY OF PRESENT ILLNESS: A 75-year-old female came in through the Emergency Room about a week ago, was started on Bactrim for a urinary tract infection. She began to feel lightheaded and may have been side effect of the medication. However, the patient also noted that she was very weak overall and when evaluated in the Emergency Room her sodium was down to 123. The patient felt lightheaded and unsafe walking and as a result of this, the patient was admitted to the hospital for further evaluation. The patient is up-to-date on her COVID shots. The patient in turn was admitted because of the severe hyponatremia and further evaluation of such, may be related to the antibiotic, it may be related obviously to other sources that could cause the low sodium. 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 ALLERGIES: CODEINE, ETHER, PENICILLIN, BENADRYL, PREDNISOLONE and LORAZEPAM. MEDICATIONS: Albuterol, DuoNeb, diabetic shoes, allopurinol 100 mg, chlorthalidone 25 half tablet, Benicar 40, rosuvastatin 20, vitamin D, diltiazem 360, carbamazepine 200 mg 4 times a day, tramadol 50, ____ lancets. FAMILY HISTORY: Father of tuberculosis. Mother with coronary artery disease. SOCIAL HISTORY: The patient denies smoking, alcohol or drug use. She is a full code. REVIEW OF SYSTEMS: The patient denies headaches, visual changes, chest pain, shortness of breath, abdominal pain, has some nausea, but no vomiting. Bowels are normal. Outside of her numbness and weakness and tingling denies any slurred speech or facial droop. PHYSICAL EXAMINATION: GENERAL: Pleasant white female, moderately obese. VITAL SIGNS: Blood pressure 138/80, respiratory rate 20, pulse 72, afebrile. HEENT: The patient's head was atraumatic, normocephalic. Eyes: PERRL except for the right eye of course, which has a glass eye. Mouth and throat were normal. NECK: Supple, without JVD, carotid bruits or thyromegaly. LUNGS: Diminished throughout, poor movement of air. CARDIOVASCULAR: Regular sinus rhythm, S1, S2, without murmur, rub, thrill, or extra heart sounds. ABDOMEN: Soft, nontender, no rebound or guarding. Positive bowel sounds, no hepatosplenomegaly noted. EXTREMITIES: No clubbing, cyanosis, nor edema. NEUROLOGIC: The patient was alert and oriented x 3. Sodium was 123. Creatinine was normal. Blood sugars were up and down. Cardiac enzymes negative. The patient will be admitted for further evaluation of hyponatremia, hypotension, lightheadedness and make further evaluation on her as indicated. CIRO VIDAL MD DR: KHADRA/feroz JOB#: [id number] / [id number]
== END 2020-09-10 11:00 | disposition home or self-care (01) | DRG 641 ==
LOC: ER 16:17 → 1 SOUTH 20:46
PROVIDERS: ADMIT Family Medicine; ATTEND Family Medicine
DX: E87.1 Hypo-osmolality and hyponatremia (principal); N39.0 Urinary tract infection, site not specified; J45.909 Unspecified asthma, uncomplicated; E78.00 Pure hypercholesterolemia, unspecified; E11.9 Type 2 diabetes mellitus without complications; I10 Essential (primary) hypertension; M10.9 Gout, unspecified; T36.8X5A Adverse effect of other systemic antibiotics, initial encounter; G40.409 Other generalized epilepsy and epileptic syndromes, not intractable, without status epilepticus; M85.80 Other specified disorders of bone density and structure, unspecified site; Z87.891 Personal history of nicotine dependence; Z98.51 Tubal ligation status; Z82.49 Family history of ischemic heart disease and other diseases of the circulatory system; Z90.710 Acquired absence of both cervix and uterus; Z88.0 Allergy status to penicillin; Z91.011 Allergy to milk products; Z88.5 Allergy status to narcotic agent; Z91.010 Allergy to peanuts; Y92.89 Other specified places as the place of occurrence of the external cause
CPT/HCPCS: 36415; 71045; 80048; 80053; 81001; 82533; 82947; 83735; 83935; 84300; 84443; 84484; 85025; 85379; 87086; 93005; 96360; 99285-25; J7030

== ENCOUNTER 2020-09-18 17:54 | Emergency (ER) | payer MEDICARE ==
[~2020-09-18] VITALS: Ht 167.6 cm; Wt 106.0 kg
[~2020-09-18 17:54] MED LIST changes: +ALLO100T PO; +ASPI-889 PO; +CARB200C7 PO; +CHLO25TA9 PO; +CRESTOR40 MG PO; +DILT360T7 PO; +GLYB2.5T2 PO; +OLME40TA12 PO
--- NOTE | 2020-09-18 18:39 | PHYS DOC ---
Past History Past Medical History: Anxiety, Asthma, Diabetes, High Cholesterol, Heart Disease, Hypertension, Seizure, Other Past Surgical History: Hysterectomy, Tonsillectomy, Tubal ligation, Other Smoking: Quit Greater Than 1 Year Alcohol Use: None Drug Use: None Adult General Chief Complaint Chief Complaint: DIZZY/LIGHT HEADED HPI HPI Patient is a 75-year-old female with a past medical history of anxiety, depression, diabetes and hypertension who presents to the emergency department with an episode of lightheadedness. States he has been doing well but this m orning she got up from sitting down and felt lightheaded and had to sit back down. Denies any syncope, diaphoresis, headache, changes in vision, chest pain, shortness of breath, abdominal pain, nausea, vomiting, urinary symptoms, diarrhea, or blood in the stool.. Denies any recent Covid/flu/cold symptoms. Denies any recent travel, illnesses or ill contacts. States that here in the emergency department she feels okay but was wondering why she felt lightheaded this morning. Review of Systems Review of Systems Review of systems otherwise unremarkable except noted in HPI Allergies Allergies Allergies Coded Allergies Type Severity Reaction Last Updated Verified Penicillins Allergy Intermediate 08/30/17 Yes codeine Allergy Intermediate 08/30/17 Yes ether Allergy Intermediate 08/30/17 Yes milk Allergy Intermediate 08/30/17 Yes peanut oil Allergy Intermediate 08/30/17 Yes Physical Exam Physical Exam Constitutional: Well developed, well nourished, no acute distress, non-toxic appearance. [] HENT: Normocephalic, atraumatic, bilateral external ears normal, oropharynx moist, no oral exudates, nose normal. [] Eyes: conjunctiva normal, no discharge. [] Neck: Normal range of motion, Cardiovascular:Heart rate regular rhythm, no murmur [] Lungs & Thorax: Bilateral breath sounds clear to auscultation [] Abdomen: Bowel sounds normal, soft, no tenderness, no masses, no pulsatile masses. [] Skin: Warm, dry, no erythema, no rash. [] Back: No tenderness, no CVA tenderness. [] Extremities: No tenderness, no cyanosis, no clubbing, ROM intact, no edema. [] Neurologic: Alert and oriented X 3, no focal deficits noted. [] Psychologic: Affect normal, judgement normal, mood normal. [] Current Patient Data Vital Signs Vital Signs Date Time Temp Pulse Resp B/P (MAP) Pulse Ox O2 Delivery O2 Flow Rate FiO2 09/18/20 17:59 97.9 68 18 214/59 (110) 100 Room Air EKG EKG EKG with a rate of 64, QRS of 104, QTc of 390, no STEMI [] Radiology/Procedures Radiology/Procedures [] Heart Score C/O Chest Pain: No Risk Factors: Risk Factors: DM, Current or recent (<one month) smoker, HTN, HLP, family history of CAD, obesity. Risk Scores: Risk Factors: DM, Current or recent (<one month) smoker, HTN, HLP, family history of CAD, obesity. Course & Med Decision Making Course & Med Decision Making Patient is a 75-year-old female who presents to the emergency department with a chief complaint of episode of lightheadedness this morning Vital signs initially notable for hypertension. Physical exam noted above. EKG noted above with no STEMI. Troponin normal. D-dimer normal for age. Laboratory analysis notable for mild hyponatremia 132. Imaging noted above with no acute findings. On reassessment patient still asymptomatic with improved vital signs. Patient stated that all the information discussed made her feel better and she was ready to be discharged home and did not want a wait in the emergency department any longer as she was tired and want to go to bed. Discussed with family the need to follow-up with primary care first thing in the morning. Gave strict return precautions. Family grateful, verbalized understanding and agreed with plan of discharge. [] Dragon Disclaimer Dragon Disclaimer This electronic medical record was generated, in whole or in part, using a voice recognition dictation system. Departure Departure: Impression: Primary Impression: Episodic lightheadedness Disposition: 01 HOME / SELF CARE / HOMELESS Condition: GOOD Referrals: CIRO VIDAL MD (PCP) Patient Instructions: Dizziness, [id number] Additional Instructions: Please read all of the attached information carefully. Please continue to take all your medications as prescribed and please do not forget to take your blood pressure medicine tonight when you get home. Please call your primary care physician first thing in the morning to update on your ED visit and set up a follow-up as soon as you can. Please come back to the emergency department immediately with any new or concerning symptoms as discussed. CLARK RAMIRES MD September 18, 2020 18:39
--- NOTE | 2020-09-18 19:10 | RAD ---
STUDY: CT head without contrast INDICATION: Dizziness. COMPARISON: 12/21/2018 TECHNIQUE: Axial CT imaging through the head without the use of intravenous contrast. Sagittal and co kwadwo reformats were obtained. One or more of the following individualized dose reduction techniques were utilized for this examinat ion: 1. Automated exposure control 2. Adjustment of the mA and/or kV according to patient size 3. Use of iterative reconstruction technique. FINDINGS: No acute intracranial hemorrhage. Webb-white matter differentiation is maintained. No localized mass effect, midline shift or hydrocephalus. Essentially unchanged parenchymal volume and attenuation pattern. Intracranial calcific atheroscleros is. Intact calvarium. Normally aerated mastoid air cells, middle ears and visualized paranasal sinuses. IMPRESSION: No acute intracranial abnormality by CT. No apparent change from 12/21/2018. Electronically signed by: GILBERT KOORMA MD (09/18/2020 7:08 PM) [facility]
[2020-09-18 19:37] LABS: BASO % 1 % (0-3); EOS # 0.1 x10^3/uL (0.0-0.7); EOS % 2 % (0-3); HEMOGLOBIN 11.3 g/dL (12.0-15.5); LYMPH % 30 % (24-48); MEAN CORPUSCULAR HEMOGLOBIN 30 pg (25-35); MEAN CORPUSCULAR HGB CONC 33 g/dL (31-37); MEAN CORPUSCULAR VOLUME 90 fL (79-100); MONO # 0.3 x10^3/uL (0.0-1.1); MONO % 5 % (0-9); NEUT # 4.3 x10^3uL (1.8-7.7); NEUT % 63 % (31-73); PLATELET COUNT 191 x10^3/uL (140-400); RED CELL DISTRIBUTION WIDTH 14.3 % (11.5-14.5); WHITE BLOOD COUNT 6.8 x10^3/uL (4.0-11.0)
[2020-09-18 19:41] LABS: CALCIUM 9.8 mg/dL (8.5-10.1); GFR 54.2; POTASSIUM 4.6 mmol/L (3.5-5.1)
[2020-09-18 19:45] LABS: ALBUMIN 3.8 g/dL (3.4-5.0); ALBUMIN/GLOBULIN RATIO 1.1 (1.0-1.7); TOTAL BILIRUBIN 0.3 mg/dL (0.2-1.0); TOTAL PROTEIN 7.3 g/dL (6.4-8.2)
[2020-09-18 20:39] VITALS: BP 177/68
--- NOTE | 2020-09-18 21:25 | EKG ---
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
== END 2020-09-18 20:55 | disposition home or self-care (01) ==
LOC: ER 17:54
DX: R42 Dizziness and giddiness (principal); F41.9 Anxiety disorder, unspecified; J45.909 Unspecified asthma, uncomplicated; E11.9 Type 2 diabetes mellitus without complications; E78.00 Pure hypercholesterolemia, unspecified; I11.9 Hypertensive heart disease without heart failure; F32.9 Major depressive disorder, single episode, unspecified; Z87.891 Personal history of nicotine dependence; Z88.0 Allergy status to penicillin; Z88.5 Allergy status to narcotic agent; Z91.011 Allergy to milk products; Z91.010 Allergy to peanuts; Z88.8 Allergy status to other drugs, medicaments and biological substances
CPT/HCPCS: 36415; 70450; 80053; 84484; 85025; 85379; 93005; 99285

== ENCOUNTER 2020-11-27 20:08 | Emergency (ER) | payer MEDICARE ==
[~2020-11-27] VITALS: Ht 167.6 cm; Wt 106.0 kg
[2020-11-27 20:28] VITALS: BP 187/87
--- NOTE | 2020-11-27 20:49 | PHYS DOC ---
Past History Past Medical History: Anxiety, Asthma, Diabetes, High Cholesterol, Heart Disease, Hypertension, Seizure, Other (ERNESTO PALMA DRUM STOCK CLERK) Past Surgical History: Hysterectomy, Tonsillectomy, Tubal ligation, Other (ERNESTO PALMA APRN) Smoking: Quit Greater Than 1 Year Alcohol Use: None Drug Use: None (ERNESTO PALMA APRN) Adult General Chief Complaint Chief Complaint: BLOOD SUGAR PROBLEM [facility] HPI Patient is a female with a history of diabetes type 2, hypertension, high cholesterol, who presents today concerned her glucometer machines are not accurate and she cannot trust them. Patient states she took her blood sugars this afternoon at 3:28 her blood sugar was 90. At 6:32pm she took her blood sugar with one machine which was 54 repeated at 6:38pm with another machine it showed her blood sugar was 54. She had something to eat, redid her blood sugar at 6:52 which was 98with another machine. She comes to the ED concerned her blood sugar machines are not accurate. Patient has no symptoms. Of note she was seen by her PCP this morning (ERNESTO PALMA DRUM STOCK CLERK) Review of Systems Review of Systems Constitutional: Denies fever or chills [] Eyes: Denies change in visual acuity, redness, or eye pain [] HENT: Denies nasal congestion or sore throat [] Respiratory: Denies cough or shortness of breath [] Cardiovascular: No additional information not addressed in HPI [] GI: Denies abdominal pain, nausea, vomiting, bloody stools or diarrhea [] : Denies dysuria or hematuria [] Musculoskeletal: Denies back pain or joint pain [] Integument: Denies rash or skin lesions [] Neurologic: Denies headache, focal weakness or sensory changes [] Endocrine: Reports blood sugar problem All other systems were reviewed and found to be within normal limits, except as documented in this note. (ERNESTO PALMA DRUM STOCK CLERK) Allergies Allergies Allergies Coded Allergies Type Severity Reaction Last Updated Verified Penicillins Allergy Intermediate 08/30/17 Yes codeine Allergy Intermediate 08/30/17 Yes ether Allergy Intermediate 08/30/17 Yes milk Allergy Intermediate 08/30/17 Yes peanut oil Allergy Intermediate 08/30/17 Yes (ERNESTO PALMA DRUM STOCK CLERK) Physical Exam Physical Exam Constitutional: Well developed, well nourished, no acute distress, non-toxic appearance. [] HENT: Normocephalic, atraumatic, bilateral external ears normal, oropharynx moist, no oral exudates, nose normal. [] Eyes: PERRLA, EOMI, conjunctiva normal, no discharge. [] Neck: Normal range of motion, no tenderness, supple, no stridor. [] Cardiovascular:Heart rate regular rhythm, no murmur [] Lungs & Thorax: Bilateral breath sounds clear to auscultation [] Abdomen: Bowel sounds normal, soft, no tenderness, no masses, no pulsatile masses. [] Skin: Warm, dry, no erythema, no rash. [] Back: No tenderness, no CVA tenderness. [] Extremities: No tenderness, no cyanosis, no clubbing, ROM intact, no edema. [] Neurologic: Alert and oriented X 3, normal motor function, normal sensory function, no focal deficits noted. [] Psychologic: Affect normal, judgement normal, mood normal. [] (ERNESTO PALMA DRUM STOCK CLERK) Current Patient Data Vital Signs Vital Signs Date Time Temp Pulse Resp B/P (MAP) Pulse Ox O2 Delivery O2 Flow Rate FiO2 11/27/20 20:28 98.4 87 16 187/87 98 Room Air Lab Results Laboratory Tests Test 11/27/20 20:24 Glucose (Fingerstick) 147 mg/dL (70-99) H (ERNESTO PALMA DRUM STOCK CLERK) EKG EKG [] (ERNESTO PALMA DRUM STOCK CLERK) Radiology/Procedures Radiology/Procedures [] (ERNESTO PALMA APRN) Heart Score C/O Chest Pain: N/A Risk Factors: Risk Factors: DM, Current or recent (<one month) smoker, HTN, HLP, family h istory of CAD, obesity. Risk Scores: Risk Factors: DM, Current or recent (<one month) smoker, HTN, HLP, family history of CAD, obesity. (ERNESTO PALMA DRUM STOCK CLERK) Course & Med Decision Making Course & Med Decision Making This is a 75-year-old female patient presenting to the ED today pertinent Labs and Imaging studies reviewed. (See chart for details) Setting she cannot trust her to glucometer machines because they are giving different readings. See HPI. Her blood glucose in the ED was 147. Looking at her readings shown on her HPI i recommended she picks one machine and use it. Her PCP has also told her and to use one machine only. Patient is hesitant requesting a glucometer for home use. Informed patient to contact the PCP tomorrow morning and talk to him about getting another glucometer if she needs one (ERNESTO PALMA APRN) Dragon Disclaimer Dragon Disclaimer This electronic medical record was generated, in whole or in part, using a voice recognition dictation system. (ERNESTO PALMA APRN) Departure Departure: Impression: Primary Impression: Normal blood glucose level Disposition: HOME / SELF CARE / HOMELESS Condition: STABLE Referrals: CIRO VIDAL MD (PCP) follow up in one week Patient Instructions: Monitoring for Diabetes Additional Instructions: Your blood glucose in the emergency room is 147. We highly recommend you pick 1 glucometer and use it. Please follow-up with your doctor tomorrow if you need a new machine Attending Signature Attending Signature I have reviewed the PA/RETAIL PHARMACIST's note and plan of care. I was available for consul tation as needed during the patient's visit in the emergency department. I agree with the clinical impression, plan, and disposition. (ROSEANNE HENDERSON DO) ERNESTO PALMA APRN Nov 27, 2020 20:49 ROSEANNE HENDERSON DO Nov 28, 2020 01:58
== END 2020-11-27 21:14 | disposition home or self-care (01) ==
LOC: ER 20:08
DX: Z71.1 Person with feared health complaint in whom no diagnosis is made (principal); E11.9 Type 2 diabetes mellitus without complications; J45.909 Unspecified asthma, uncomplicated; F41.9 Anxiety disorder, unspecified; E78.00 Pure hypercholesterolemia, unspecified; I11.9 Hypertensive heart disease without heart failure; Z87.891 Personal history of nicotine dependence; Z88.0 Allergy status to penicillin; Z88.5 Allergy status to narcotic agent; Z91.011 Allergy to milk products; Z91.010 Allergy to peanuts; Z88.8 Allergy status to other drugs, medicaments and biological substances
CPT/HCPCS: 82947; 99283

== ENCOUNTER 2020-12-22 18:59 | Emergency (ER) | payer MEDICARE ==
[~2020-12-22] VITALS: Ht 167.6 cm; Wt 106.0 kg
--- NOTE | 2020-12-22 19:04 | PHYS DOC ---
Past History Past Medical History: Anxiety, Asthma, Diabetes, High Cholesterol, Heart Disease, Hypertension, Seizure, Other Past Surgical History: Hysterectomy, Tonsillectomy, Tubal ligation, Other Smoking: Quit Greater Than 1 Year Alcohol Use: None Drug Use: None General Adult EDM: Chief Complaint: HYPERTENSION HPI: HPI: "... I forgot to check my blood pressure this morning... I remembered this afternoon so I took it and it was really high... Dr. Howard does not like it high so I thought I better come in and get checked out.../"I feel fine" Patient is a 75 year old female who presents with above hx and complaints of accelerated hypertension. Patient states she has been taking her meds as directed for hypertension. Patient did states she had an intake of extra salt today. No other current complaints. Does have significant history of anxiety, depression, diabetes, hypertension and episodes of accelerated hypertension. Patient states knowing when her blood pressure gets this high she gets lightheaded. Patient denies any recent travel. Patient denies any specific ill contacts. Patient denies any immunosuppression. Patient does report she has not smoked for the past year. Review of Systems: Review of Systems: Constitutional: Denies fever or chills Eyes: Denies change in visual acuity HENT: Denies nasal congestion or sore throat Respiratory: Denies cough or shortness of breath Cardiovascular: Denies chest pain or edema . Complains of elevated blood pressure this afternoon. GI: Denies abdominal pain, nausea, vomiting, bloody stools or diarrhea : Denies dysuria Musculoskeletal: Denies back pain or joint pain Integument: Denies rash Neurologic: Denies headache, focal weakness or sensory changes Endocrine: Denies polyuria or polydipsia Lymphatic: Denies swollen glands Psychiatric: Denies depression or anxiety Family History: Family History: Noncontributory to presentation Current Medications: Current Meds: See nursing for home medications Allergies: Allergies: Allergies Coded Allergies Type Severity Reaction Last Updated Verified Penicillins Allergy Intermediate 08/30/17 Yes codeine Allergy Intermediate 08/30/17 Yes ether Allergy Intermediate 08/30/17 Yes milk Allergy Intermediate 08/30/17 Yes peanut oil Allergy Intermediate 08/30/17 Yes Physical Exam: PE: Constitutional: , no acute distress, non-toxic appearance. [] HENT: Normocephalic, atraumatic, bilateral external ears normal, oropharynx moist, no oral exudates, nose normal. [] Eyes: PERRLA, EOMI, conjunctiva normal, no discharge. Glasses Neck: Normal range of motion, no tenderness, supple, no Cardiology: Regular rate and rhythm, no appreciable murmur the monitor bedside shows a sinus rhythm with no obvious acute pathology Lungs & Thorax: Bilateral breath sounds equal at apex does have some bilateral wheezes on lower lopez on auscultation [] Abdomen: Bowel sounds normal, soft, no tenderness, no masses, no pulsatile masses. Obese. Old surgery scars. Skin: Warm, dry, no erythema, no rash. Poor turgor. Back: No tenderness, no CVA tenderness. [] Extremities: No tenderness, no cyanosis, no clubbing, ROM intact, bilateral ankle edema. [] Neurologic: Alert and oriented X 3, moves all extremities on request, does have distal sensory, no new focal deficits noted. [] Psychologic: Affect anxious, judgement normal, mood normal. [] EKG: EKG: [] Radiology/Procedures: Radiology/Procedures: [] Heart Score: C/O Chest Pain: N/A Risk Factors: Risk Factors: DM, Current or recent (<one month) smoker, HTN, HLP, family history of CAD, obesity. Risk Scores: Score 0 - 3: 2.5% MACE over next 6 weeks - Discharge Home Score 4 - 6: 20.3% MACE over next 6 weeks - Admit for Clinical Observation Score 7 - 10: 72.7% MACE over next 6 weeks - Early Invasive Strategies Course & Med Decision Making: Course & Med Decision Making Pertinent Labs and Imaging studies reviewed. (See chart for details) Patient wear clonidine patch until follow-up care. Take blood pressure cuff in to the doctor's office to do comparison of her cuff pressures with doctors office blood pressure cough. Patient take meds previous directed. Patient wear clonidine patch. Remove remove patch if becomes hypotensive. Must keep follow-up primary care. Return if any concerns Impression: 1. Accelerated hypertension [] Chrissy Disclaimer: Chrissy Disclaimer: This electronic medical record was generated, in whole or in part, using a voice recognition dictation system. Departure Departure: Referrals: CIRO HOWARD MD (PCP) Chrissy Disclaimer This chart was dictated in whole or in part using Voice Recognition software in a busy, high-work load, and often noisy Emergency Department environment. It may contain unintended and wholly unrecognized errors or omissions. LILIAN CHANEY MD Dec 22, 2020 19:04
[2020-12-22] MEDS ORDERED: cloNIDine HCL 0.1 MG TABLET PO ONE (19:30)
[2020-12-22] MEDS ORDERED: cloNIDine TTS-2 1 PATCH PATCH TD ONE (19:30)
[2020-12-22 20:29] VITALS: BP 106/56
== END 2020-12-22 20:30 | disposition home or self-care (01) ==
LOC: ER 18:59
DX: I10 Essential (primary) hypertension (principal); J45.909 Unspecified asthma, uncomplicated; E11.9 Type 2 diabetes mellitus without complications; E78.5 Hyperlipidemia, unspecified; Z88.0 Allergy status to penicillin; Z88.5 Allergy status to narcotic agent; Z91.011 Allergy to milk products; Z90.710 Acquired absence of both cervix and uterus; Z98.51 Tubal ligation status; Z87.891 Personal history of nicotine dependence
CPT/HCPCS: 99283

== ENCOUNTER 2020-12-26 09:29 | Emergency (ER) | payer MEDICARE ==
[~2020-12-26] VITALS: Ht 167.6 cm; Wt 106.0 kg
[2020-12-26 10:21] LABS: BASO % 1 % (0-3); EOS % 1 % (0-3); HEMATOCRIT 34.6 % (36.0-47.0); HEMOGLOBIN 11.7 g/dL (12.0-15.5); LYMPH # 1.4 x10^3/uL (1.0-4.8); LYMPH % 27 % (24-48); MEAN CORPUSCULAR HEMOGLOBIN 30 pg (25-35); MEAN CORPUSCULAR HGB CONC 34 g/dL (31-37); MEAN CORPUSCULAR VOLUME 88 fL (79-100); MONO # 0.4 x10^3/uL (0.0-1.1); MONO % 7 % (0-9); NEUT # 3.5 x10^3uL (1.8-7.7); NEUT % 65 % (31-73); PLATELET COUNT 218 x10^3/uL (140-400); RED BLOOD COUNT 3.92 x10^6/uL (3.50-5.40); RED CELL DISTRIBUTION WIDTH 13.6 % (11.5-14.5); WHITE BLOOD COUNT 5.4 x10^3/uL (4.0-11.0)
[2020-12-26 10:32] LABS: CALCIUM 9.6 mg/dL (8.5-10.1); GFR 54.2; POTASSIUM 4.4 mmol/L (3.5-5.1)
--- NOTE | 2020-12-26 10:49 | PHYS DOC ---
Past History Past Medical History: Anxiety, Asthma, Diabetes, High Cholesterol, Heart Disease, Hypertension, Seizure, Other Past Surgical History: Hysterectomy, Tonsillectomy, Tubal ligation, Other Smoking: Quit Greater Than 1 Year Alcohol Use: None Drug Use: None Adult General Chief Complaint Chief Complaint: ABNORMAL LABS [facility] HPI Patient is a 75-year-old female patient who presents with abnormal lab findings per primary care. Patient reports she has seen her primary care and Dr. Jc 2 days ago, had labs drawn, and was informed this morning that she n eeded to come the emergency room for evaluation because one of her labs was abnormal. States she was told that her sodium was high. Patient states she feels okay, denies any nausea, vomiting, discomfort. States she feels good at this time, denies any confusion, denies any altered mental status. Denies any headache. Denies any new medication changes. Patient family member reports patient is acting normally at this time. Patient does report she has history of hepatitis, for several years ago, has not had any flareups since that time, however she does feel a bit of malaise and is concerned that maybe was causing her to have some of the symptoms as well. Review of Systems Review of Systems Constitutional: Denies fever or chills [] Eyes: Denies change in visual acuity, redness, or eye pain [] HENT: Denies nasal congestion or sore throat [] Respiratory: Denies cough or shortness of breath [] Cardiovascular: No additional information not addressed in HPI [] GI: Denies abdominal pain, nausea, vomiting, bloody stools or diarrhea [] : Denies dysuria or hematuria [] Musculoskeletal: Denies back pain or joint pain [] Integument: Denies rash or skin lesions [] Neurologic: Denies headache, focal weakness or sensory changes [] Endocrine: Denies polyuria or polydipsia [] All other systems were reviewed and found to be within normal limits, except as documented in this note. Allergies Allergies Allergies Coded Allergies Type Severity Reaction Last Updated Verified Penicillins Allergy Intermediate 08/30/17 Yes codeine Allergy Intermediate 08/30/17 Yes ether Allergy Intermediate 08/30/17 Yes milk Allergy Intermediate 08/30/17 Yes peanut oil Allergy Intermediate 08/30/17 Yes Physical Exam Physical Exam Constitutional: Well developed, well nourished, no acute distress, non-toxic appearance. [] HENT: Normocephalic, atraumatic, bilateral external ears normal, oropharynx moist, no oral exudates, nose normal. [] Eyes: PERRLA, EOMI, conjunctiva normal, no discharge. [] No jaundice noted Neck: Normal range of motion, no tenderness, supple, no stridor. [] Cardiovascular:Heart rate regular rhythm, no murmur [] Lungs & Thorax: Bilateral breath sounds clear to auscultation [] Abdomen: Bowel sounds normal, soft, no tenderness, no masses, no pulsatile masses. [] Skin: Warm, dry, no erythema, no rash. [] Back: No tenderness, no CVA tenderness. [] Extremities: No tenderness, no cyanosis, no clubbing, ROM intact, no edema. [] Neurologic: Alert and oriented X 3, normal motor function, normal sensory function, no focal deficits noted. [] Psychologic: Affect normal, judgement normal, mood normal. [] Current Patient Data Vital Signs Vital Signs Date Time Temp Pulse Resp B/P (MAP) Pulse Ox O2 Delivery O2 Flow Rate FiO2 12/26/20 09:57 98.4 70 16 135/63 (87) 99 Room Air Lab Results Laboratory Tests Test 12/26/20 10:07 White Blood Count 5.4 x10^3/uL (4.0-11.0) Red Blood Count 3.92 x10^6/uL (3.50-5.40) Hemoglobin 11.7 g/dL (12.0-15.5) L Hematocrit 34.6 % (36.0-47.0) L Mean Corpuscular Volume 88 fL (79-100) Mean Corpuscular Hemoglobin 30 pg (25-35) Mean Corpuscular Hemoglobin Concent 34 g/dL (31-37) Red Cell Distribution Width 13.6 % (11.5-14.5) Platelet Count 218 x10^3/uL (140-400) Neutrophils (%) (Auto) 65 % (31-73) Lymphocytes (%) (Auto) 27 % (24-48) Monocytes (%) (Auto) 7 % (0-9) Eosinophils (%) (Auto) 1 % (0-3) Basophils (%) (Auto) 1 % (0-3) Neutrophils # (Auto) 3.5 x10^3uL (1.8-7.7) Lymphocytes # (Auto) 1.4 x10^3/uL (1.0-4.8) Monocytes # (Auto) 0.4 x10^3/uL (0.0-1.1) Eosinophils # (Auto) 0.0 x10^3/uL (0.0-0.7) Basophils # (Auto) 0.0 x10^3/uL (0.0-0.2) Sodium Level 120 mmol/L (136-145) L Potassium Level 4.4 mmol/L (3.5-5.1) Chloride Level 87 mmol/L (98-107) L Carbon Dioxide Level 28 mmol/L (21-32) Anion Gap 5 (6-14) L Blood Urea Nitrogen 24 mg/dL (7-20) H Creatinine 1.0 mg/dL (0.6-1.0) Estimated GFR (Cockcroft-Gault) 54.2 Glucose Level 188 mg/dL (70-99) H Calcium Level 9.6 mg/dL (8.5-10.1) EKG EKG [] Radiology/Procedures Radiology/Procedures [] Heart Score C/O Chest Pain: No Risk Factors: Risk Factors: DM, Current or recent (<one month) smoker, HTN, HLP, family history of CAD, obesity. Risk Scores: Risk Factors: DM, Current or recent (<one month) smoker, HTN, HLP, family history of CAD, obesity. Course & Med Decision Making Course & Med Decision Making Pertinent Labs and Imaging studies reviewed. (See chart for details) [] We will evaluate lab findings at this time, to determine sodium as well as with electrolytes status. With no new medications no confusion, consider chronic condition however cannot rule out acute hyponatremia. Patient does not report any recent nausea, vomiting, or diarrhea. @[address] Jc, advises patient Na was 111 yesterday when drawn. Advise patient doesn't need admission, recommends patient be on fluid restriction and follow up in clinic for lab draw tomorrow. Discussed results and plan with patient, patient understands limitations and that she's making improvements. Dragon Disclaimer Dragon Disclaimer This electronic medical record was generated, in whole or in part, using a voice recognition dictation system. Departure Departure: Impression: Primary Impression: Hyponatremia Disposition: HOME / SELF CARE / HOMELESS Condition: STABLE Referrals: CIRO VIDAL MD (PCP) Patient Instructions: Dilutional Hyponatremia, Sodium and Fluid Restriction Additional Instructions: As we discussed, follow-up in Dr. Jc's office tomorrow to have your blood drawn again to evaluate your sodium levels. Limit yourself to 1200 mL of water each day until cleared to return to normal by Dr. Jc. Follow-up with Dr. Jc for your lab results. CHADD DILLARD APRN Dec 26, 2020 10:49
[2020-12-26 11:15] LABS: ALBUMIN 3.7 g/dL (3.4-5.0); TOTAL BILIRUBIN 0.3 mg/dL (0.2-1.0)
[2020-12-26] MEDS: IV NORMAL SALINE 1,000ML 1,000 ML IV ONE (11:15)
[2020-12-26 11:29] LABS: DIRECT BILIRUBIN 0.1 mg/dL (0.0-0.2)
[2020-12-26 12:02] LABS: BACTERIA,URINE 0 /HPF (0-FEW); BILIRUBIN,URINE NEG (NEG); CLARITY,URINE CLEAR; COLOR,URINE YELLOW; GLUCOSE,URINE NEG (NEG); NITRITE,URINE NEG (NEG); RBC,URINE OCC /HPF (0-2); SQUAMOUS EPITHELIAL CELL,UR FEW /LPF; UROBILINOGEN,URINE 0.2 mg/dL (0.2 mg/dL)
[2020-12-26 12:03] VITALS: BP 132/60
== END 2020-12-26 12:24 | disposition home or self-care (01) ==
LOC: ER 09:29
DX: E87.1 Hypo-osmolality and hyponatremia (principal); F41.9 Anxiety disorder, unspecified; J45.909 Unspecified asthma, uncomplicated; E11.9 Type 2 diabetes mellitus without complications; E78.00 Pure hypercholesterolemia, unspecified; I11.9 Hypertensive heart disease without heart failure; Z87.891 Personal history of nicotine dependence; Z88.0 Allergy status to penicillin; Z88.5 Allergy status to narcotic agent; Z91.011 Allergy to milk products; Z91.018 Allergy to other foods
CPT/HCPCS: 36415; 80048; 80076; 81001; 85025; 87086; 96360; 99283; J7030

== ENCOUNTER 2020-12-26 20:27 | Emergency (ER) | payer MEDICARE ==
[~2020-12-26] VITALS: Ht 167.6 cm; Wt 106.0 kg
[2020-12-26 20:43] VITALS: BP 187/49
[2020-12-26] MEDS ORDERED: ONDANSETRON ODT 4 MG TAB.RAPDIS ONE (21:13)
[2020-12-26] MEDS ORDERED: ONDANSETRON ODT 4 MG TAB.RAPDIS PO ONE (21:15)
--- NOTE | 2020-12-26 21:17 | PHYS DOC ---
Past History Past Medical History: Anxiety, Asthma, Diabetes, High Cholesterol, Heart Disease, Hypertension, Seizure, Other Past Surgical History: Hysterectomy, Tonsillectomy, Tubal ligation, Other Smoking: Quit Greater Than 1 Year Alcohol Use: None Drug Use: None General Adult EDM: Chief Complaint: MULTIPLE COMPLAINTS HPI: HPI: 75-year-old female returns the emergency room with nausea. Patient was seen earlier today and had blood work and was found to have a low sodium. She was treated and determined to be able to be discharged. She comes back tonight stating that she is nauseated and she has an appointment with her primary care physician tomorrow morning and wants to add hepatitis screening to her blood work. She has no other specific complaints. Review of Systems: Review of Systems: Constitutional: Denies fever or chills Eyes: Denies change in visual acuity HENT: Denies nasal congestion or sore throat Respiratory: Denies cough or shortness of breath Cardiovascular: Denies chest pain or edema GI: Nausea. Denies abdominal pain, vomiting, bloody stools or diarrhea : Denies dysuria Musculoskeletal: Denies back pain or joint pain Integument: Denies rash Neurologic: Denies headache, focal weakness or sensory changes Endocrine: Denies polyuria or polydipsia Lymphatic: Denies swollen glands Psychiatric: Denies depression or anxiety Allergies: Allergies: Allergies Coded Allergies Type Severity Reaction Last Updated Verified Penicillins Allergy Intermediate 08/30/17 Yes codeine Allergy Intermediate 08/30/17 Yes ether Allergy Intermediate 08/30/17 Yes milk Allergy Intermediate 08/30/17 Yes peanut oil Allergy Intermediate 08/30/17 Yes Physical Exam: PE: Constitutional: Well developed, well nourished, morbidly obese, no acute distress, non-toxic appearance. [] HENT: Normocephalic, atraumatic, bilateral external ears normal, oropharynx moist, no oral exudates, nose normal. [] Eyes: PERRLA, EOMI, conjunctiva normal, no discharge. [] Neck: Normal range of motion, no tenderness, supple, no stridor. [] Cardiovascular: Heart rate regular rhythm, no murmur [] Lungs & Thorax: Bilateral breath sounds clear to auscultation [] Abdomen: Bowel sounds normal, soft, no tenderness, no masses, no pulsatile masses. [] Skin: Warm, dry, no erythema, no rash. [] Back: No tenderness, no CVA tenderness. [] Extremities: No tenderness, no cyanosis, no clubbing, ROM intact, no edema. [] Neurologic: Alert and oriented X 3, normal motor function, normal sensory function, no focal deficits noted. [] Psychologic: Affect normal, judgement normal, mood normal. [] Current Patient Data: Labs: Laboratory Tests Test 12/26/20 20:41 Glucose (Fingerstick) 108 mg/dL (70-99) H Vital Signs: Vital Signs Date Time Temp Pulse Resp B/P (MAP) Pulse Ox O2 Delivery O2 Flow Rate FiO2 12/26/20 20:43 97.9 69 18 187/49 100 Room Air EKG: EKG: [] Radiology/Procedures: Radiology/Procedures: [] Heart Score: C/O Chest Pain: N/A Risk Factors: Risk Factors: DM, Current or recent (<one month) smoker, HTN, HLP, family history of CAD, obesity. Risk Scores: Score 0 - 3: 2.5% MACE over next 6 weeks - Discharge Home Score 4 - 6: 20.3% MACE over next 6 weeks - Admit for Clinical Observation Score 7 - 10: 72.7% MACE over next 6 weeks - Early Invasive Strategies Course & Med Decision Making: Course & Med Decision Making Pertinent Labs and Imaging studies reviewed. (See chart for details) We gave the patient 1 Nilda MORALEST. She has had no vomiting in the emergency room. I informed her that her primary care physician can easily add on a hepatitis screen to the blood work she already has scheduled tomorrow morning. She is stable for discharge at this time. [] Dragon Disclaimer: Dragon Disclaimer: This electronic medical record was generated, in whole or in part, using a voice recognition dictation system. Departure Departure: Impression: Primary Impression: Nausea Disposition: HOME / SELF CARE / HOMELESS Condition: STABLE Referrals: CIRO VIDAL MD (PCP) Patient Instructions: Nausea, Adult, [id number] RONNIE GUILLAUME DO Dec 26, 2020 21:17
== END 2020-12-26 21:22 | disposition home or self-care (01) ==
LOC: ER 20:27
DX: R11.0 Nausea (principal); J45.909 Unspecified asthma, uncomplicated; E11.9 Type 2 diabetes mellitus without complications; E78.00 Pure hypercholesterolemia, unspecified; I11.9 Hypertensive heart disease without heart failure; Z87.891 Personal history of nicotine dependence; Z88.0 Allergy status to penicillin; Z88.5 Allergy status to narcotic agent; Z91.011 Allergy to milk products; Z91.018 Allergy to other foods; Z88.8 Allergy status to other drugs, medicaments and biological substances
CPT/HCPCS: 82947; 99283; Q0162

== ENCOUNTER 2021-02-17 18:24 | Emergency (ER) | payer MEDICARE ==
[~2021-02-17] VITALS: Ht 167.6 cm; Wt 100.0 kg
--- NOTE | 2021-02-17 18:43 | PHYS DOC ---
Past History Past Medical History: Anxiety, Asthma, Diabetes, High Cholesterol, Heart Disease, Hypertension, Seizure, Other Past Surgical History: Hysterectomy, Tonsillectomy, Tubal ligation, Other Smoking: Quit Greater Than 1 Year Alcohol Use: None Drug Use: None Adult General Chief Complaint Chief Complaint: HYPOGLYCEMIA HPI HPI Patient is a 75-year-old female presenting via EMS for hypoglycemia. Patient reports she was at home and felt a little lightheaded, fatigue and slightly diaphoretic without any other concerning symptoms such as recent fever, chest p ain, ripping or tearing sensation in chest, shortness of breath or cough, abdominal pain, changes in motor or sensory or neuro function. She checked her fingerstick blood glucose which was 42. She reports she ate a meal which caused her blood sugar to increase to adequate levels. She reports approximately an hour and a half later she experienced similar symptoms and again after checking her fingerstick blood glucose, she was in the 40s. She ate another small meal and subsequently called EMS for transport to our facility as she was concern for ongoing hypoglycemic episodes. On arrival, patient was found to be hemodynamically stable with blood glucose of 212. Nonetheless, patient was transported to our facility for arrival. On arrival, patient has no complaints. She denies any recent changes in health, no recent medication changes, she is not on any insulin or other diabetic medications that could cause her glucose to decrease. She is on Metformin only. She has a previously scheduled outpatient follow-up with her primary care physician tomorrow. She is fully vaccinated against COVID-19 at this time and demonstrates no concerning symptoms Review of Systems Review of Systems Fourteen body systems of review of systems have been reviewed. See HPI for pertinent positives and negative responses, other cordoba all other systems are negative, non-pertinent or non-contributory Allergies Allergies Allergies Coded Allergies Type Severity Reaction Last Updated Verified Penicillins Allergy Intermediate 08/30/17 Yes codeine Allergy Intermediate 08/30/17 Yes ether Allergy Intermediate 08/30/17 Yes milk Allergy Intermediate 08/30/17 Yes peanut oil Allergy Intermediate 08/30/17 Yes Physical Exam Physical Exam Constitutional: Well developed, well nourished, no acute distress, non-toxic appearance. HENT: Normocephalic, atraumatic, bilateral external ears normal, oropharynx moist, no oral exudates, nose normal. Eyes: PERRLA, EOMI, conjunctiva normal, no discharge. Neck: Normal range of motion, no tenderness, supple, no stridor. Cardiovascular: Heart rate regular, sinus rhythm, no murmurs rubs or gallops Lungs & Thorax: Bilateral breath sounds clear to auscultation Abdomen: Bowel sounds normal, soft, no tenderness, no masses, no pulsatile masses. Nonsurgical abdomen, no peritoneal signs Skin: Warm, dry, no erythema, no rash. Back: No tenderness, no CVA tenderness. Extremities: No tenderness, no cyanosis, no clubbing, ROM intact, trace pedal edema bilaterally Neurologic: Alert and oriented X 3, grossly normal motor & sensory function, no focal deficits noted. Psychologic: Affect normal, judgement normal, mood normal. Current Patient Data Vital Signs Vital Signs Date Time Temp Pulse Resp B/P (MAP) Pulse Ox O2 Delivery O2 Flow Rate FiO2 02/17/21 18:44 98.0 65 16 182/64 (103) 99 Vital Signs Date Time Temp Pulse Resp B/P (MAP) Pulse Ox O2 Delivery O2 Flow Rate FiO2 02/17/21 18:44 98.0 65 16 182/64 (103) 99 Lab Results Laboratory Tests Test 02/17/21 18:30 White Blood Count 7.1 x10^3/uL Red Blood Count 3.38 x10^6/uL Hemoglobin 10.1 g/dL Hematocrit 31.2 % Mean Corpuscular Volume 93 fL Mean Corpuscular Hemoglobin 30 pg Mean Corpuscular Hemoglobin Concent 32 g/dL Red Cell Distribution Width 14.5 % Platelet Count 219 x10^3/uL Neutrophils (%) (Auto) 69 % Lymphocytes (%) (Auto) 24 % Monocytes (%) (Auto) 6 % Eosinophils (%) (Auto) 1 % Basophils (%) (Auto) 0 % Neutrophils # (Auto) 4.9 x10^3uL Lymphocytes # (Auto) 1.7 x10^3/uL Monocytes # (Auto) 0.4 x10^3/uL Eosinophils # (Auto) 0.1 x10^3/uL Basophils # (Auto) 0.0 x10^3/uL Sodium Level 134 mmol/L Potassium Level 4.0 mmol/L Chloride Level 98 mmol/L Carbon Dioxide Level 27 mmol/L Anion Gap 9 Blood Urea Nitrogen 40 mg/dL Creatinine 1.1 mg/dL Estimated GFR (Cockcroft-Gault) 48.6 Glucose Level 213 mg/dL Glucose (Fingerstick) 204 mg/dL Calcium Level 9.6 mg/dL Troponin I Quantitative < 0.017 ng/mL EKG EKG EKG ordered and interpreted by myself at 1853 hrs. is sinus rhythm at 65 bpm, prolonged OH at 210 otherwise unremarkable intervals, no axis deviation, no obvi ous ischemic findings, no STEMI Radiology/Procedures Radiology/Procedures EXAMINATION: Chest radiograph. VIEWS: Single view COMPARISON: 09/07/2020 INDICATION:75 years, Female, hypoglycemia. FINDINGS: Normal cardiomediastinal silhouette. No focal consolidation. No pleural effusion or pneumothorax. No acute osseous process. IMPRESSION: No acute cardiopulmonary process. Electronically signed by: Katherine Darden MD (02/17/2021 7:42 PM) [facility] Heart Score C/O Chest Pain: No HEART Score for Chest Pain: HEART Score for Chest Pain Response (Comments) Value History Slighlty/Non-Suspicious 0 ECG Normal 0 Age > 65 2 Risk Factors >3 Risk Factors or Hx CAD 2 Troponin < Normal Limit 0 Total 4 Risk Factors: Risk Factors: DM, Current or recent (<one month) smoker, HTN, HLP, family history of CAD, obesity. Risk Scores: Risk Factors: DM, Current or recent (<one month) smoker, HTN, HLP, family history of CAD, obesity. Course & Med Decision Making Course & Med Decision Making ABCs unremarkable HPI physical exam and comprehensive ER work-up nonconcerning for any emergent or surgical issues Patient asymptomatic throughout entirety of ER visit. Patient's fingerstick glucose checked numerous times and remained within adequate levels with no recurrence of hypoglycemia. Etiology of patient's hypoglycemia unknown as she is not on any medications that could cause this hypoglycemia. Also no obvious infectious disease process or other concerning insult, ingestion, mechanism of injury etc. that might have caused her hypoglycemic episode She is knowledgeable on her diabetes, has adequate supplies at home to check her fingerstick blood glucose and can keep a dedicated log She has previously scheduled outpatient follow-up with her primary care physician tomorrow which I advised her to keep. Strict return precautions discussed with good understanding by patient and significant other at bedside. All questions and concerns addressed prior to departure Chrissy Disclaimer Dragon Disclaimer This electronic medical record was generated, in whole or in part, using a voice recognition dictation system. Departure Departure: Impression: Primary Impression: Type 2 diabetes mellitus Disposition: HOME / SELF CARE / HOMELESS Condition: STABLE Referrals: CIRO VIDAL MD (PCP) Additional Instructions: You were seen for hypoglycemia. The etiology of your hypoglycemia episodes are unknown. You are not on any known medications that would cause low blood sugar levels. As such, it is important for good glycemic control to reduce the risks of acute and chronic medical problems. You need to follow-up with your primary care physician tomorrow as previously scheduled. Return to the ED if you develop any abdominal pain, vomiting, cough, chest pain, fever, or any other new or concerning symptoms. ZULMA CLARK DO Feb 17, 2021 18:43
[2021-02-17 18:44] VITALS: BP 182/64
[2021-02-17 19:05] LABS: BASO % 0 % (0-3); EOS # 0.1 x10^3/uL (0.0-0.7); EOS % 1 % (0-3); HEMATOCRIT 31.2 % (36.0-47.0); HEMOGLOBIN 10.1 g/dL (12.0-15.5); LYMPH # 1.7 x10^3/uL (1.0-4.8); LYMPH % 24 % (24-48); MEAN CORPUSCULAR HEMOGLOBIN 30 pg (25-35); MEAN CORPUSCULAR HGB CONC 32 g/dL (31-37); MEAN CORPUSCULAR VOLUME 93 fL (79-100); MONO # 0.4 x10^3/uL (0.0-1.1); MONO % 6 % (0-9); NEUT # 4.9 x10^3uL (1.8-7.7); NEUT % 69 % (31-73); PLATELET COUNT 219 x10^3/uL (140-400); RED BLOOD COUNT 3.38 x10^6/uL (3.50-5.40); RED CELL DISTRIBUTION WIDTH 14.5 % (11.5-14.5); WHITE BLOOD COUNT 7.1 x10^3/uL (4.0-11.0)
[2021-02-17 19:11] LABS: CALCIUM 9.6 mg/dL (8.5-10.1); CREATININE 1.1 mg/dL (0.6-1.0); GFR 48.6
--- NOTE | 2021-02-17 19:44 | RAD ---
EXAMINATION: Chest radiograph. VIEWS: Single view COMPARISON: 09/07/2020 INDICATION:75 years, Female, hypoglycemia. FINDINGS: Normal cardiomediastinal silhouette. No focal consolidation. No pleural effusion or pneumothorax. No acute osseous process. IMPRESSION: No acute cardiopulmonary process. Electronically signed by: Katherine Darden MD (02/17/2021 7:42 PM) [facility]
--- NOTE | 2021-02-17 20:27 | EKG ---
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
== END 2021-02-17 20:05 | disposition home or self-care (01) ==
LOC: ER 18:24
DX: E11.649 Type 2 diabetes mellitus with hypoglycemia without coma (principal); J45.909 Unspecified asthma, uncomplicated; E78.00 Pure hypercholesterolemia, unspecified; I11.9 Hypertensive heart disease without heart failure; Z87.891 Personal history of nicotine dependence; Z88.0 Allergy status to penicillin; Z88.5 Allergy status to narcotic agent; Z91.011 Allergy to milk products; Z91.010 Allergy to peanuts
CPT/HCPCS: 36415; 71045; 80048; 82947; 84484; 85025; 93005; 99285-25

== ENCOUNTER 2021-05-14 20:14 | Emergency (ER) | payer MEDICARE ==
[~2021-05-14] VITALS: Ht 167.6 cm; Wt 100.0 kg
[~2021-05-14 20:14] MED LIST changes: -CYCL-331 PO; +CYCL10TA19 PO
[2021-05-14 20:40] VITALS: BP 182/64
--- NOTE | 2021-05-14 21:52 | PHYS DOC ---
Past History Past Medical History: Anxiety, Asthma, Diabetes, High Cholesterol, Heart Disease, Hypertension, Seizure, Other Past Surgical History: No Surgical History Smoking: Quit Greater Than 1 Year Alcohol Use: None Drug Use: None Adult General Chief Complaint Chief Complaint: HYPOGLYCEMIA HPI HPI Patient is a 75-year-old female with a past medical history significant for CAD, hypertension, hyperlipidemia, diabetes insulin-dependent and anxiety with histories of hypoglycemia and hyponatremia who presents with a chief complaint of lightheadedness. States over the last 3 to 4 days she has had intermittent episodes of feeling lightheaded but has had no syncope. States that last time s he had this her sodium was really low and was admitted to the hospital. Denies any recent traumas, travels, illnesses, fevers, chest pain, shortness of breath, abdominal pain, nausea, vomiting, diarrhea, dysuria, hematuria or blood in the stool. Cannot identify any aggravating or alleviating factors. States that when she has these episodes she is still able to walk but feels lightheaded. Review of Systems Review of Systems Review of systems otherwise unremarkable except noted in HPI Allergies Allergies Allergies Coded Allergies Type Severity Reaction Last Updated Verified Penicillins Allergy Intermediate 08/30/17 Yes codeine Allergy Intermediate 08/30/17 Yes ether Allergy Intermediate 08/30/17 Yes milk Allergy Intermediate 08/30/17 Yes peanut oil Allergy Intermediate 08/30/17 Yes Physical Exam Physical Exam Constitutional: Well developed, well nourished, no acute distress, non-toxic appearance. [] HENT: Normocephalic, atraumatic, bilateral external ears normal, oropharynx moist, no oral exudates, nose normal. [] Eyes: PERRLA, EOMI, conjunctiva normal, no discharge. [] Neck: Normal range of motion, no tenderness, supple, no stridor. [] Cardiovascular:Heart rate regular rhythm, no murmur [] Lungs & Thorax: Bilateral breath sounds clear to auscultation [] Abdomen: Bowel sounds normal, soft, no tenderness, no masses, no pulsatile masses. [] Skin: Warm, dry, no erythema, no rash. [] Back: No tenderness, no CVA tenderness. [] Extremities: No tenderness, no cyanosis, no clubbing, ROM intact, no edema. [] Neurologic: Alert and oriented X 3, normal motor function, normal sensory function, able to sit, stand and walk, cranial nerves intact other than right I which normally deviates laterally no focal deficits noted. [] Psychologic: Affect normal, judgement normal, mood normal. [] Current Patient Data Lab Results Laboratory Tests Test 05/14/21 20:38 Glucose (Fingerstick) 136 mg/dL (70-99) H EKG EKG [] Radiology/Procedures Radiology/Procedures [] Heart Score C/O Chest Pain: No Risk Factors: Risk Factors: DM, Current or recent (<one month) smoker, HTN, HLP, family history of CAD, obesity. Risk Scores: Risk Factors: DM, Current or recent (<one month) smoker, HTN, HLP, family history of CAD, obesity. Course & Med Decision Making Course & Med Decision Making Patient is a 75-year-old female who presents to the emergency department with a chief complaint of lightheadedness last 3 to 4 days Vital signs notable for hypertension, but patient states she had not taken her hypertension medicine yet today and took it while in the ED. Physical exam noted above. Laboratory analysis not concerning. CT of the head not concerning. On reassessment patient was up walking around her room stating that she was feeling better, symptoms were gone and she was ready to be discharged home. States that she has an appointment day after tomorrow with her primary care physician and with update them on ED visit. Gave strict return precautions to the ED. Patient grateful, verbalized understanding and agreed with plan of discharge. [] Dragon Disclaimer Dragon Disclaimer This electronic medical record was generated, in whole or in part, using a voice recognition dictation system. Departure Departure: Impression: Primary Impression: Lightheaded Disposition: 01 HOME / SELF CARE / HOMELESS Condition: STABLE Referrals: CIRO VIDAL MD (PCP) Patient Instructions: Dizziness Additional Instructions: Thank you for coming into the emergency department tonight and allowing us to take care of you. Please read the attached information carefully. Please take all your medicines as prescribed. Please keep your upcoming appointment with your primary care physician and update them on your ED visit. Please come back to the emergency department immediately with new or concerning symptoms as discussed. CLARK RAMIRES MD May 14, 2021 21:52
--- NOTE | 2021-05-14 22:26 | RAD ---
Exam: CT head INDICATION: Lightheaded TECHNIQUE: Sequential axial images through the head were obtained without the administration of IV co ntrast. Exposure: One or more of the following in the visualized dose reduction techniques were utilized for this examination: 1. Automated exposure control 2. Adjustment of the MA and/or KV according to patient size 3. Use of iterative of reconstructive technique Comparisons: 09/19/2019 FINDINGS: No focal parenchymal lesion or hemorrhage is identified. There is no midline shift or sulcal effaceme nt. No acute vascular territory infarction is identified. Webb-white distinction is preserved. The ventricular system is within normal limits without compression hydrocephalus. The basal cisterns are well maintained. The visualized portions of the paranasal sinuses and mastoid air cells are well-pneumatized. No acute fractures. IMPRESSION: No acute intracranial abnormality. Electronically signed by: Renate Norris MD (05/14/2021 10:24 PM) [facility]
[2021-05-14 22:54] LABS: HEMATOCRIT 36.4 % (36.0-47.0); HEMOGLOBIN 11.8 g/dL (12.0-15.5); RED BLOOD COUNT 3.96 x10^6/uL (3.50-5.40); RED CELL DISTRIBUTION WIDTH 13.2 % (11.5-14.5); WHITE BLOOD COUNT 7.4 x10^3/uL (4.0-11.0)
[2021-05-14 23:02] LABS: BACTERIA,URINE FEW /HPF (0-FEW); BILIRUBIN,URINE NEG (NEG); CLARITY,URINE HAZY; COLOR,URINE YELLOW; GLUCOSE,URINE NEG (NEG); NITRITE,URINE NEG (NEG); RBC,URINE OCC /HPF (0-2); SQUAMOUS EPITHELIAL CELL,UR FEW /LPF; UROBILINOGEN,URINE 0.2 mg/dL (0.2 mg/dL)
[2021-05-14 23:07] LABS: CALCIUM 9.5 mg/dL (8.5-10.1); CREATININE 1.1 mg/dL (0.6-1.0); GFR 48.6; POTASSIUM 4.4 mmol/L (3.5-5.1)
[2021-05-14 23:13] LABS: ALBUMIN 3.9 g/dL (3.4-5.0); ALBUMIN/GLOBULIN RATIO 1.2 (1.0-1.7); TOTAL BILIRUBIN 0.1 mg/dL (0.2-1.0); TOTAL PROTEIN 7.2 g/dL (6.4-8.2)
--- NOTE | 2021-05-15 05:32 | EKG ---
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
== END 2021-05-14 23:33 | disposition home or self-care (01) ==
LOC: ER 20:14
DX: R42 Dizziness and giddiness (principal); I25.10 Atherosclerotic heart disease of native coronary artery without angina pectoris; I10 Essential (primary) hypertension; E78.5 Hyperlipidemia, unspecified; E11.9 Type 2 diabetes mellitus without complications; F41.9 Anxiety disorder, unspecified; J45.909 Unspecified asthma, uncomplicated; E78.00 Pure hypercholesterolemia, unspecified; Z87.891 Personal history of nicotine dependence; Z88.0 Allergy status to penicillin; Z88.5 Allergy status to narcotic agent; Z91.011 Allergy to milk products; Z91.018 Allergy to other foods; Z88.8 Allergy status to other drugs, medicaments and biological substances
CPT/HCPCS: 36415; 70450; 80053; 81001; 82947; 84484; 85027; 87086; 93005; 99285